=== PATIENT | male | born 1935 | race Caucasian/White ===

== ENCOUNTER 2022-11-11 08:14 | Inpatient (IN) | payer OTHER ==
[~2022-11-11] VITALS: Ht 165.1 cm; Wt 68.0 kg
[2022-11-11 08:20] VITALS: BP_SYST 105
[2022-11-11 08:28] VITALS: BP_SYST 116
[2022-11-11 09:10] LABS: HEMOGLOBIN 12.1 g/dL (14.0-18.0); LYMPHOCYTES # (AUTO) 0.2 K/uL (1.0-5.5); LYMPHOCYTES % (AUTO) 5.1 % (20.5-51.5); MEAN CORPUSCULAR HEMOGLOBIN 29 pg (27-31); MEAN CORPUSCULAR HGB CONC 34 % (32-36); MEAN CORPUSCULAR VOLUME 85 fL (79.0-98.0); MONOCYTES # (AUTO) 0.2 K/uL (0.0-1.0); MONOCYTES % (AUTO) 4.5 % (1.7-9.3); NEUTROPHILS # (AUTO) 3.5 K/uL (1.8-7.7); NEUTROPHILS % (AUTO) 90.4 % (40.0-70.0); PLATELET COUNT (AUTO) 148 K/uL (130-430); RED BLOOD CELL COUNT(AUTO) 4.23 MIL/uL (4.2-6.2); RED CELL DISTRIBUTION WIDTH 15.3 % (9.0-15.0); WHITE BLOOD COUNT (AUTO) 3.8 K/uL (4.8-10.8)
[2022-11-11 09:20] LABS: ANION GAP 18 (5-15); CALCIUM 8.3 mg/dL (8.4-11.0); CHLORIDE 95 mmol/L (98-107); CREATININE 4.71 mg/dL (0.55-1.30); GLUCOSE 116 mg/dL (70-99); UREA NITROGEN, BLOOD 84 mg/dL (8-21)
[2022-11-11 09:25] LABS: ALANINE AMINOTRANSFERASE 57 U/L (12-78); ALBUMIN 2.6 g/dL (3.4-4.8); ASPARTATE AMINOTRANSFERASE 74 U/L (10-37); TOTAL BILIRUBIN 0.6 mg/dL (0.0-1.0)
[2022-11-11 09:44] LABS: BILIRUBIN,URINE NEGATIVE (NEGATIVE); BLOOD, URINE 3+ (NEGATIVE); CLARITY/URINE CLOUDY (CLEAR); COLOR,URINE YELLOW (YELLOW); GLUCOSE,URINE NEGATIVE (NEGATIVE); KETONES,URINE NEGATIVE (NEGATIVE); LEUKOCYTE ESTERASE ,URINE NEGATIVE (NEGATIVE); NITRITE, URINE NEGATIVE (NEGATIVE); PH,URINE 5.5 (5.0-8.0); PROTEIN URINE 2+ (NEGATIVE); UROBILINOGEN,URINE 0.2 (0.2-1.0)
[2022-11-11] MEDS ORDERED: cefTRIAXone 1 GM IVPB PREMIX 50 ML IV ONE (10:15)
[2022-11-11] MEDS ORDERED: AZITHROMYCIN 500 MG in NS 250 ML IV ONE (10:15)
[2022-11-11] MEDS ORDERED: ASPIRIN 325 MG TABLET PO ONE (10:15)
[2022-11-11] MEDS ORDERED: HEPARIN SODIUM,PORCINE 5,000 UNITS/ML VIAL SUBCUT ONE (10:15)
[2022-11-11] MEDS ORDERED: methylPREDNISolone SOD SUCC/PF 62.5 MG/ML VIAL IVP ONE (10:15)
[2022-11-11 10:51] LABS: BACTERIA,URINE None Seen /HPF (None Seen); URINE AMORPHOUS URATE 4+ /HPF (None Seen); WBC,URINE 0-3 /HPF (0-3)
[2022-11-11 10:58] VITALS: BP_SYST 116
[2022-11-11] MEDS ORDERED: AZITHROMYCIN 500 MG/VIAL (ZITHROMAX) IV ONE (11:27)
[2022-11-11] MEDS ORDERED: MORPHINE 2 MG/ML INJ. SYRINGE IVP PRN ×2 (11:45)
[2022-11-11] MEDS ORDERED: POTASSIUM CHLORIDE 20 MEQ TAB.PRT.SR PO PRN (11:45)
[2022-11-11] MEDS ORDERED: MAGNESIUM SULFATE 50 ML IV PRN (11:45)
[2022-11-11] MEDS ORDERED: NALOXONE HCL 0.4 MG/ML AMP (NARCAN) IVP PRN ×2 (11:45)
[2022-11-11] MEDS ORDERED: ZOLPIDEM TARTRATE 5 MG TABLET PO PRN (11:45)
[2022-11-11] MEDS ORDERED: MUPIROCIN 2% TOPICAL OINTMENT 22 GM NS PRN (11:45)
[2022-11-11] MEDS ORDERED: LORazepam 2 MG/ML VIAL IVP PRN (11:45)
[2022-11-11] MEDS ORDERED: ACETAMINOPHEN 325 MG TABLET PO PRN (11:45)
[2022-11-11] MEDS ORDERED: DECADRON 4 MG TABLET PO SCH (12:00)
[2022-11-11] MEDS ORDERED: SIMV-43 PO (12:07)
[2022-11-11] MEDS: NACL 0.9% 1,000 ML IV SCH ×3 (12:16→21:41)
[2022-11-11] MEDS ORDERED: ENAL-77 PO (12:25)
[2022-11-11] MEDS ORDERED: LEVO50TA8 PO (12:25)
[2022-11-11] MEDS ORDERED: [UNRECOGNIZED DRUG - CODE] PO (12:25)
[2022-11-11] MEDS ORDERED: SITA50TA3 PO (12:25)
[2022-11-11] MEDS ORDERED: HYT1 PO (12:25)
[2022-11-11] MEDS ORDERED: [UNRECOGNIZED DRUG - CODE] (12:25)
[2022-11-11] MEDS ORDERED: NIRM1TAB5 PO (12:25)
[2022-11-11] MEDS ORDERED: [UNRECOGNIZED DRUG - CODE] TP (12:25)
[2022-11-11] MEDS ORDERED: AZITHROMYCIN 250 MG TABLET PO ONE (13:00)
[2022-11-11] MEDS ORDERED: DEXTROSE 50% JECT 50 ML DISP.SYRIN IVP PRN (13:30)
[2022-11-11] MEDS: cefTRIAXone 1 GM in D5W 50 ML IV SCH (14:00)
[2022-11-11 19:55] VITALS: BP_SYST 120
[2022-11-11] MEDS: SIMVASTATIN 20 MG TABLET PO SCH (21:40)
[2022-11-11] MEDS: HEPARIN SODIUM,PORCINE 5,000 UNITS/ML VIAL SUBCUT SCH (21:40)
[2022-11-11 21:42] VITALS: BP_SYST 120
[2022-11-11] MEDS: INSULIN LISPRO SLIDING SCALE 100 UNITS/ML, 3 ML VIAL (humaLOG) SUBCUT PRN (22:09)
[2022-11-12 01:14] VITALS: BP_SYST 105
[2022-11-12 05:54] LABS: BASOPHILS % (AUTO) 0.1 % (0.0-2.0); HEMATOCRIT 33.7 % (36-54); HEMOGLOBIN 11.4 g/dL (14.0-18.0); LYMPHOCYTES # (AUTO) 0.5 K/uL (1.0-5.5); LYMPHOCYTES % (AUTO) 11.6 % (20.5-51.5); MEAN CORPUSCULAR HEMOGLOBIN 29 pg (27-31); MEAN CORPUSCULAR HGB CONC 34 % (32-36); MEAN CORPUSCULAR VOLUME 85 fL (79.0-98.0); MONOCYTES # (AUTO) 0.2 K/uL (0.0-1.0); MONOCYTES % (AUTO) 5.7 % (1.7-9.3); NEUTROPHILS # (AUTO) 3.2 K/uL (1.8-7.7); NEUTROPHILS % (AUTO) 82.6 % (40.0-70.0); PLATELET COUNT (AUTO) 137 K/uL (130-430); RED BLOOD CELL COUNT(AUTO) 3.97 MIL/uL (4.2-6.2); WHITE BLOOD COUNT (AUTO) 3.9 K/uL (4.8-10.8)
[2022-11-12] MEDS: INSULIN LISPRO SLIDING SCALE 100 UNITS/ML, 3 ML VIAL (humaLOG) SUBCUT PRN ×4 (05:57→21:24)
[2022-11-12 06:52] LABS: ERYTHROCYTE SEDIMENTATION RATE 84 MM/HR (0-15)
[2022-11-12 07:33] LABS: ANION GAP 16 (5-15); CALCIUM 7.7 mg/dL (8.4-11.0); CHLORIDE 98 mmol/L (98-107); CREATININE 4.53 mg/dL (0.55-1.30); GLUCOSE 176 mg/dL (70-99)
[2022-11-12 07:52] LABS: C-REACTIVE PROTEIN QUANT 42.7 mg/dL (0-0.5)
[2022-11-12 08:01] LABS: UREA NITROGEN, BLOOD 105 mg/dL (8-21)
[2022-11-12 08:45] VITALS: BP_SYST 117
[2022-11-12] MEDS: IPRATROPIUM/ALBUTEROL SULFATE 3 ML AMPUL.NEB (DUONEB) INH PRN (08:56)
[2022-11-12] MEDS ORDERED: AZITHROMYCIN 250 MG TABLET PO ONE (09:00)
[2022-11-12] MEDS ORDERED: AZITHROMYCIN 250 MG TABLET PO SCH (09:00)
[2022-11-12] MEDS: DEXAMETHASONE SOD PHOSPHATE 10 MG/ML VIAL IVP SCH (10:08)
[2022-11-12] MEDS: HEPARIN SODIUM,PORCINE 5,000 UNITS/ML VIAL SUBCUT SCH (10:08)
[2022-11-12] MEDS: LEVOTHYROXINE SODIUM 0.05 MG TABLET PO SCH (10:13)
[2022-11-12] MEDS: CHOLECALCIFEROL (VITAMIN D3) 2,000 UNIT TABLET PO SCH (10:13)
[2022-11-12] MEDS: ASCORBIC ACID 500 MG TABLET PO SCH (10:13)
[2022-11-12] MEDS: TERAZOSIN HCL 1 MG CAPSULE (HYTRIN) PO SCH (10:14)
[2022-11-12 11:25] VITALS: BP_SYST 130
[2022-11-12 15:22] VITALS: BP_SYST 155
[2022-11-12] MEDS: cefTRIAXone 1 GM in D5W 50 ML IV SCH (15:52)
[2022-11-12] MEDS: NACL 0.9% 1,000 ML IV SCH (16:21)
[2022-11-12] MEDS ORDERED: APIXABAN 2.5 MG TABLET PO ONE (16:30)
[2022-11-12 20:40] VITALS: BP_SYST 130
[2022-11-12] MEDS: SIMVASTATIN 20 MG TABLET PO SCH (21:22)
[2022-11-12] MEDS: APIXABAN 2.5 MG TABLET PO SCH (21:23)
[2022-11-13] VITALS (13 sets, daily range): BP systolic 110–144
[2022-11-13 06:03] LABS: HEMATOCRIT 33.5 % (36-54); HEMOGLOBIN 11.2 g/dL (14.0-18.0); LYMPHOCYTES # (AUTO) 0.5 K/uL (1.0-5.5); LYMPHOCYTES % (AUTO) 6.2 % (20.5-51.5); MEAN CORPUSCULAR HEMOGLOBIN 29 pg (27-31); MEAN CORPUSCULAR HGB CONC 34 % (32-36); MEAN CORPUSCULAR VOLUME 86 fL (79.0-98.0); MONOCYTES # (AUTO) 0.6 K/uL (0.0-1.0); MONOCYTES % (AUTO) 6.6 % (1.7-9.3); NEUTROPHILS # (AUTO) 7.4 K/uL (1.8-7.7); NEUTROPHILS % (AUTO) 87.2 % (40.0-70.0); PLATELET COUNT (AUTO) 155 K/uL (130-430); RED BLOOD CELL COUNT(AUTO) 3.92 MIL/uL (4.2-6.2); RED CELL DISTRIBUTION WIDTH 15.2 % (9.0-15.0); WHITE BLOOD COUNT (AUTO) 8.6 K/uL (4.8-10.8)
[2022-11-13] MEDS: NACL 0.9% 1,000 ML IV SCH ×2 (06:40→21:45)
[2022-11-13] MEDS: INSULIN LISPRO SLIDING SCALE 100 UNITS/ML, 3 ML VIAL (humaLOG) SUBCUT PRN ×4 (06:46→21:43)
[2022-11-13] MEDS: IPRATROPIUM/ALBUTEROL SULFATE 3 ML AMPUL.NEB (DUONEB) INH PRN ×2 (07:37→13:04)
[2022-11-13 07:55] LABS: ANION GAP 17 (5-15); C-REACTIVE PROTEIN QUANT 32.6 mg/dL (0-0.5); CALCIUM 7.8 mg/dL (8.4-11.0); CHLORIDE 100 mmol/L (98-107); CREATININE 3.97 mg/dL (0.55-1.30); GLUCOSE 243 mg/dL (70-99)
[2022-11-13 07:59] LABS: UREA NITROGEN, BLOOD 133 mg/dL (8-21)
[2022-11-13 08:26] LABS: ERYTHROCYTE SEDIMENTATION RATE 86 MM/HR (0-15)
[2022-11-13] MEDS: DEXAMETHASONE SOD PHOSPHATE 10 MG/ML VIAL IVP SCH (10:41)
[2022-11-13] MEDS: APIXABAN 2.5 MG TABLET PO SCH (10:41)
[2022-11-13] MEDS: LEVOTHYROXINE SODIUM 0.05 MG TABLET PO SCH (10:42)
[2022-11-13] MEDS: ASCORBIC ACID 500 MG TABLET PO SCH (10:43)
[2022-11-13] MEDS: TERAZOSIN HCL 1 MG CAPSULE (HYTRIN) PO SCH (10:43)
[2022-11-13] MEDS: CHOLECALCIFEROL (VITAMIN D3) 2,000 UNIT TABLET PO SCH (10:45)
[2022-11-13] MEDS: ONDANSETRON HCL 4 MG/2 ML VIAL IVP PRN (13:04)
[2022-11-13] MEDS ORDERED: DEXAMETHASONE SOD PHOSPHATE 4 MG/ML VIAL IVP ONE (13:15)
[2022-11-13 15:48] LABS: ANION GAP 16 (5-15); CALCIUM 8.3 mg/dL (8.4-11.0); CHLORIDE 100 mmol/L (98-107); CREATININE 3.52 mg/dL (0.55-1.30); GLUCOSE 289 mg/dL (70-99)
[2022-11-13 15:52] LABS: UREA NITROGEN, BLOOD 142 mg/dL (8-21)
[2022-11-13 15:54] LABS: BASOPHILS % (AUTO) 0.1 % (0.0-2.0); HEMOGLOBIN 10.7 g/dL (14.0-18.0); LYMPHOCYTES # (AUTO) 0.2 K/uL (1.0-5.5); LYMPHOCYTES % (AUTO) 2.2 % (20.5-51.5); MEAN CORPUSCULAR HEMOGLOBIN 29 pg (27-31); MEAN CORPUSCULAR HGB CONC 33 % (32-36); MEAN CORPUSCULAR VOLUME 87 fL (79.0-98.0); MONOCYTES # (AUTO) 0.7 K/uL (0.0-1.0); MONOCYTES % (AUTO) 6.8 % (1.7-9.3); NEUTROPHILS # (AUTO) 9.4 K/uL (1.8-7.7); PLATELET COUNT (AUTO) 183 K/uL (130-430); RED CELL DISTRIBUTION WIDTH 15.4 % (9.0-15.0); WHITE BLOOD COUNT (AUTO) 10.3 K/uL (4.8-10.8)
[2022-11-13 16:34] LABS: NEUTROPHILS % (AUTO) 90.9 % (40.0-70.0)
[2022-11-13] MEDS: PIPERACILLIN/TAZO 2.25G/DEX-IS 50 ML IV SCH (17:03)
[2022-11-13] MEDS ORDERED: METOPROLOL TARTRATE 5 MG/5 ML VIAL IVP ONE ×2 (17:15→18:00)
[2022-11-13] MEDS ORDERED: PIPERACILLIN/TAZO 2.25G/DEX-IS 50 ML IV SCH (18:00)
[2022-11-13] MEDS ORDERED: METOPROLOL TARTRATE 5 MG/5 ML VIAL IVP PRN (20:45)
[2022-11-13] MEDS ORDERED: METOPROLOL TARTRATE 25 MG TABLET PO ONE (20:45)
[2022-11-13] MEDS ORDERED: HEPARIN SODIUM,PORCINE 5,000 UNITS/ML VIAL SUBCUT SCH (21:00)
[2022-11-13] MEDS ORDERED: METOPROLOL TARTRATE 25 MG TABLET ONE (21:05)
[2022-11-13] MEDS: SIMVASTATIN 20 MG TABLET PO SCH (21:17)
[2022-11-13] MEDS: DOXYCYCLINE HYCLATE 100 MG in D5W 100 ML IV SCH (21:46)
[2022-11-14] VITALS (22 sets, daily range): BP systolic 85–117
[2022-11-14] MEDS: PIPERACILLIN/TAZO 2.25G/DEX-IS 50 ML IV SCH ×3 (01:22→17:27)
[2022-11-14 04:28] LABS: HEMATOCRIT 25.9 % (36-54); HEMOGLOBIN 8.7 g/dL (14.0-18.0); LYMPHOCYTES # (AUTO) 0.2 K/uL (1.0-5.5); LYMPHOCYTES % (AUTO) 2.2 % (20.5-51.5); MEAN CORPUSCULAR HEMOGLOBIN 29 pg (27-31); MEAN CORPUSCULAR HGB CONC 34 % (32-36); MEAN CORPUSCULAR VOLUME 85 fL (79.0-98.0); MONOCYTES # (AUTO) 0.8 K/uL (0.0-1.0); MONOCYTES % (AUTO) 6.7 % (1.7-9.3); NEUTROPHILS # (AUTO) 10.4 K/uL (1.8-7.7); NEUTROPHILS % (AUTO) 91.1 % (40.0-70.0); PLATELET COUNT (AUTO) 210 K/uL (130-430); RED BLOOD CELL COUNT(AUTO) 3.06 MIL/uL (4.2-6.2); RED CELL DISTRIBUTION WIDTH 15.2 % (9.0-15.0); WHITE BLOOD COUNT (AUTO) 11.4 K/uL (4.8-10.8)
[2022-11-14 05:00] LABS: ALANINE AMINOTRANSFERASE 130 U/L (12-78); ALBUMIN 1.7 g/dL (3.4-4.8); ANION GAP 16 (5-15); ASPARTATE AMINOTRANSFERASE 107 U/L (10-37); C-REACTIVE PROTEIN QUANT 13.7 mg/dL (0-0.5); CALCIUM 7.3 mg/dL (8.4-11.0); CHLORIDE 105 mmol/L (98-107); CREATININE 3.65 mg/dL (0.55-1.30); GLUCOSE 382 mg/dL (70-99); LACTATE DEHYDROGENASE 344 U/L (85-227); TOTAL BILIRUBIN 0.3 mg/dL (0.0-1.0)
[2022-11-14 05:09] LABS: UREA NITROGEN, BLOOD 160 mg/dL (8-21)
[2022-11-14] MEDS ORDERED: SODIUM POLYSTYRENE SULFONATE 15 GM/60 ML UDBTL ONE (05:41)
[2022-11-14] MEDS ORDERED: SODIUM POLYSTYRENE SULFONATE 15 GM/60 ML UDBTL PO ONE (05:45)
[2022-11-14] MEDS: INSULIN LISPRO SLIDING SCALE 100 UNITS/ML, 3 ML VIAL (humaLOG) SUBCUT PRN ×4 (05:57→21:29)
[2022-11-14] MEDS: NACL 0.9% 1,000 ML IV SCH ×2 (06:02→13:21)
[2022-11-14 06:59] LABS: ERYTHROCYTE SEDIMENTATION RATE 49 MM/HR (0-15)
[2022-11-14] MEDS: DOXYCYCLINE HYCLATE 100 MG in D5W 100 ML IV SCH ×2 (08:14→21:23)
[2022-11-14] MEDS: TERAZOSIN HCL 1 MG CAPSULE (HYTRIN) PO SCH (09:00)
[2022-11-14] MEDS ORDERED: PANTOPRAZOLE SODIUM 40 MG/VIAL (PROTONIX) IVP SCH (09:00)
[2022-11-14] MEDS: LEVOTHYROXINE SODIUM 0.05 MG TABLET PO SCH (09:00)
[2022-11-14] MEDS: METOPROLOL TARTRATE 25 MG TABLET PO SCH ×2 (09:00→21:00)
[2022-11-14] MEDS: CHOLECALCIFEROL (VITAMIN D3) 2,000 UNIT TABLET PO SCH (09:00)
[2022-11-14] MEDS: ASCORBIC ACID 500 MG TABLET PO SCH (09:00)
[2022-11-14 09:37] LABS: INR 1.4 (0.80-1.20); PROTHROMBIN TIME 14.4 SECS (9.5-12.5)
[2022-11-14] MEDS: DEXAMETHASONE SOD PHOSPHATE 10 MG/ML VIAL IVP SCH (10:15)
[2022-11-14] MEDS ORDERED: PHENYLEPHRINE HCL 10 MG/ML VIAL (NEOSYNEPHRINE) ONE (11:03)
[2022-11-14] MEDS ORDERED: PHENYLEPHRINE HCL 50 MG in NS 245 ML IV PRN (12:00)
[2022-11-14] MEDS: PANTOPRAZOLE SODIUM 40 MG in NS 50 ML IV SCH ×2 (17:31→21:31)
[2022-11-14] MEDS ORDERED: AMIODARONE HCL 150 MG in D5W 100 ML IV ONE (17:45)
[2022-11-14] MEDS ORDERED: ALBUMIN HUMAN 25% 100 ML IV ONE (17:45)
[2022-11-14] MEDS: SODIUM BICARBONATE 8.4% VIAL 100 MEQ in 0.45% NACL 1,000 ML IV SCH (18:38)
[2022-11-14] MEDS: SIMVASTATIN 20 MG TABLET PO SCH (21:00)
[2022-11-14] MEDS: AMIODARONE HCL 450 MG in D5W 241 ML IV SCH (21:26)
[2022-11-14] MEDS: INSULIN GLARGINE 100 UNITS/ML, 10 ML VIAL SUBCUT SCH (21:31)
[2022-11-15] VITALS (23 sets, daily range): BP systolic 88–156
[2022-11-15] MEDS: PIPERACILLIN/TAZO 2.25G/DEX-IS 50 ML IV SCH ×3 (01:36→17:08)
[2022-11-15] MEDS: PANTOPRAZOLE SODIUM 40 MG in NS 50 ML IV SCH ×5 (01:36→23:05)
[2022-11-15] MEDS ORDERED: DEXMEDETOMIDINE HCL 200 MCG/2 ML VIAL IV ONE (04:10)
[2022-11-15 04:41] LABS: BASOPHILS % (AUTO) 0.1 % (0.0-2.0); LYMPHOCYTES # (AUTO) 0.5 K/uL (1.0-5.5); LYMPHOCYTES % (AUTO) 3.2 % (20.5-51.5); MEAN CORPUSCULAR HEMOGLOBIN 29 pg (27-31); MEAN CORPUSCULAR HGB CONC 34 % (32-36); MEAN CORPUSCULAR VOLUME 85 fL (79.0-98.0); MONOCYTES # (AUTO) 0.9 K/uL (0.0-1.0); MONOCYTES % (AUTO) 5.5 % (1.7-9.3); NEUTROPHILS # (AUTO) 14.8 K/uL (1.8-7.7); NEUTROPHILS % (AUTO) 91.2 % (40.0-70.0); PLATELET COUNT (AUTO) 256 K/uL (130-430); RED BLOOD CELL COUNT(AUTO) 2.08 MIL/uL (4.2-6.2); WHITE BLOOD COUNT (AUTO) 16.3 K/uL (4.8-10.8)
[2022-11-15 05:04] LABS: ANION GAP 17 (5-15); C-REACTIVE PROTEIN QUANT 8.7 mg/dL (0-0.5); CALCIUM 7.2 mg/dL (8.4-11.0); CHLORIDE 112 mmol/L (98-107); CREATININE 3.52 mg/dL (0.55-1.30); GLUCOSE 305 mg/dL (70-99)
[2022-11-15 05:08] LABS: UREA NITROGEN, BLOOD 156 mg/dL (8-21)
[2022-11-15 05:32] LABS: INR 1.4 (0.80-1.20); PROTHROMBIN TIME 14.5 SECS (9.5-12.5)
[2022-11-15 05:40] LABS: HEMATOCRIT 17.6 % (36-54); HEMOGLOBIN 5.9 g/dL (14.0-18.0)
[2022-11-15] MEDS: SODIUM BICARBONATE 8.4% VIAL 100 MEQ in 0.45% NACL 1,000 ML IV SCH ×3 (05:45→22:35)
[2022-11-15] MEDS: AMIODARONE HCL 450 MG in D5W 241 ML IV SCH (05:46)
[2022-11-15 05:48] LABS: ERYTHROCYTE SEDIMENTATION RATE 14 MM/HR (0-15)
[2022-11-15] MEDS: INSULIN LISPRO SLIDING SCALE 100 UNITS/ML, 3 ML VIAL (humaLOG) SUBCUT PRN ×4 (05:48→23:04)
[2022-11-15] MEDS ORDERED: NS 500 ML IV ONE (07:30)
[2022-11-15] MEDS: ALBUMIN HUMAN 25% 50 ML IV SCH ×3 (08:03→22:32)
[2022-11-15] MEDS: CHOLECALCIFEROL (VITAMIN D3) 2,000 UNIT TABLET PO SCH (09:00)
[2022-11-15] MEDS: METOPROLOL TARTRATE 25 MG TABLET PO SCH ×2 (09:00→21:00)
[2022-11-15] MEDS: LEVOTHYROXINE SODIUM 0.05 MG TABLET PO SCH (09:00)
[2022-11-15] MEDS: TERAZOSIN HCL 1 MG CAPSULE (HYTRIN) PO SCH (09:00)
[2022-11-15] MEDS: ASCORBIC ACID 500 MG TABLET PO SCH (09:00)
[2022-11-15] MEDS: DOXYCYCLINE HYCLATE 100 MG in D5W 100 ML IV SCH ×2 (09:14→22:38)
[2022-11-15] MEDS ORDERED: PHENYLEPHRINE HCL 100 MG in NS 240 ML IV PRN (09:15)
[2022-11-15] MEDS ORDERED: PHYTONADIONE 10 MG/ML AMP SUBCUT ONE (09:30)
[2022-11-15] MEDS: DEXAMETHASONE SOD PHOSPHATE 10 MG/ML VIAL IVP SCH (10:57)
[2022-11-15] MEDS: SIMVASTATIN 20 MG TABLET PO SCH (21:00)
[2022-11-15] MEDS: INSULIN GLARGINE 100 UNITS/ML, 10 ML VIAL SUBCUT SCH (22:57)
[2022-11-16] VITALS (24 sets, daily range): BP systolic 95–161
[2022-11-16] MEDS: PIPERACILLIN/TAZO 2.25G/DEX-IS 50 ML IV SCH ×3 (01:21→18:14)
[2022-11-16 05:05] LABS: BASOPHILS % (AUTO) 0.1 % (0.0-2.0); HEMOGLOBIN 8.2 g/dL (14.0-18.0); LYMPHOCYTES # (AUTO) 0.5 K/uL (1.0-5.5); LYMPHOCYTES % (AUTO) 2.2 % (20.5-51.5); MEAN CORPUSCULAR HEMOGLOBIN 30 pg (27-31); MEAN CORPUSCULAR HGB CONC 34 % (32-36); MEAN CORPUSCULAR VOLUME 86 fL (79.0-98.0); MONOCYTES # (AUTO) 1.1 K/uL (0.0-1.0); MONOCYTES % (AUTO) 4.9 % (1.7-9.3); NEUTROPHILS # (AUTO) 21.1 K/uL (1.8-7.7); NEUTROPHILS % (AUTO) 92.8 % (40.0-70.0); PLATELET COUNT (AUTO) 305 K/uL (130-430); RED BLOOD CELL COUNT(AUTO) 2.78 MIL/uL (4.2-6.2); RED CELL DISTRIBUTION WIDTH 15.4 % (9.0-15.0); WHITE BLOOD COUNT (AUTO) 22.7 K/uL (4.8-10.8)
[2022-11-16 05:25] LABS: ALANINE AMINOTRANSFERASE 83 U/L (12-78); ALBUMIN 2.3 g/dL (3.4-4.8); AMYLASE 85 U/L (0-100); ANION GAP 12 (5-15); ASPARTATE AMINOTRANSFERASE 30 U/L (10-37); CALCIUM 7.3 mg/dL (8.4-11.0); CHLORIDE 115 mmol/L (98-107); CREATININE 2.61 mg/dL (0.55-1.30); GLUCOSE 242 mg/dL (70-99); TOTAL BILIRUBIN 0.5 mg/dL (0.0-1.0)
[2022-11-16 05:30] LABS: UREA NITROGEN, BLOOD 119 mg/dL (8-21)
[2022-11-16 05:31] LABS: INR 1.5 (0.80-1.20); PROTHROMBIN TIME 15.5 SECS (9.5-12.5)
[2022-11-16] MEDS: SODIUM BICARBONATE 8.4% VIAL 100 MEQ in 0.45% NACL 1,000 ML IV SCH ×2 (05:57→18:30)
[2022-11-16] MEDS: PANTOPRAZOLE SODIUM 40 MG in NS 50 ML IV SCH ×4 (06:06→18:30)
[2022-11-16 07:01] LABS: ERYTHROCYTE SEDIMENTATION RATE 13 MM/HR (0-15)
[2022-11-16] MEDS: TERAZOSIN HCL 1 MG CAPSULE (HYTRIN) PO SCH (07:56)
[2022-11-16] MEDS: CHOLECALCIFEROL (VITAMIN D3) 2,000 UNIT TABLET PO SCH (08:03)
[2022-11-16] MEDS: ASCORBIC ACID 500 MG TABLET PO SCH (08:03)
[2022-11-16] MEDS: LEVOTHYROXINE SODIUM 0.05 MG TABLET PO SCH (08:03)
[2022-11-16] MEDS: METOPROLOL TARTRATE 25 MG TABLET PO SCH ×2 (08:03→20:47)
[2022-11-16] MEDS: DOXYCYCLINE HYCLATE 100 MG in D5W 100 ML IV SCH ×2 (08:10→20:47)
[2022-11-16] MEDS: DEXAMETHASONE SOD PHOSPHATE 10 MG/ML VIAL IVP SCH (10:45)
[2022-11-16] MEDS: SIMVASTATIN 20 MG TABLET PO SCH (20:47)
[2022-11-16] MEDS: INSULIN GLARGINE 100 UNITS/ML, 10 ML VIAL SUBCUT SCH (21:11)
[2022-11-16] MEDS: INSULIN LISPRO SLIDING SCALE 100 UNITS/ML, 3 ML VIAL (humaLOG) SUBCUT PRN (21:12)
[2022-11-17] VITALS (24 sets, daily range): BP systolic 106–145
[2022-11-17] MEDS: PIPERACILLIN/TAZO 2.25G/DEX-IS 50 ML IV SCH ×3 (01:04→17:11)
[2022-11-17] MEDS: PANTOPRAZOLE SODIUM 40 MG in NS 50 ML IV SCH ×5 (01:05→21:00)
[2022-11-17 05:22] LABS: BASOPHILS % (AUTO) 0.1 % (0.0-2.0); HEMATOCRIT 25.7 % (36-54); HEMOGLOBIN 8.6 g/dL (14.0-18.0); LYMPHOCYTES # (AUTO) 0.3 K/uL (1.0-5.5); LYMPHOCYTES % (AUTO) 1.4 % (20.5-51.5); MEAN CORPUSCULAR HEMOGLOBIN 29 pg (27-31); MEAN CORPUSCULAR HGB CONC 33 % (32-36); MEAN CORPUSCULAR VOLUME 87 fL (79.0-98.0); MONOCYTES # (AUTO) 0.9 K/uL (0.0-1.0); NEUTROPHILS % (AUTO) 94.5 % (40.0-70.0); PLATELET COUNT (AUTO) 336 K/uL (130-430); RED BLOOD CELL COUNT(AUTO) 2.96 MIL/uL (4.2-6.2); RED CELL DISTRIBUTION WIDTH 15.5 % (9.0-15.0); WHITE BLOOD COUNT (AUTO) 22.2 K/uL (4.8-10.8)
[2022-11-17 05:46] LABS: ANION GAP 11 (5-15); C-REACTIVE PROTEIN QUANT 10.1 mg/dL (0-0.5); CALCIUM 7.1 mg/dL (8.4-11.0); CHLORIDE 115 mmol/L (98-107); CREATININE 2.41 mg/dL (0.55-1.30); GLUCOSE 343 mg/dL (70-99); UREA NITROGEN, BLOOD 91 mg/dL (8-21)
[2022-11-17] MEDS: INSULIN LISPRO SLIDING SCALE 100 UNITS/ML, 3 ML VIAL (humaLOG) SUBCUT PRN ×3 (06:13→21:40)
[2022-11-17 06:50] LABS: ERYTHROCYTE SEDIMENTATION RATE 16 MM/HR (0-15)
[2022-11-17] MEDS ORDERED: NS 500 ML IV ONE (07:30)
[2022-11-17] MEDS: AMIODARONE HCL 200 MG TABLET PO SCH ×2 (08:11→21:01)
[2022-11-17] MEDS: CHOLECALCIFEROL (VITAMIN D3) 2,000 UNIT TABLET PO SCH (08:11)
[2022-11-17] MEDS: METOPROLOL TARTRATE 25 MG TABLET PO SCH ×2 (08:12→21:00)
[2022-11-17] MEDS: LEVOTHYROXINE SODIUM 0.05 MG TABLET PO SCH (08:12)
[2022-11-17] MEDS: TERAZOSIN HCL 1 MG CAPSULE (HYTRIN) PO SCH (08:12)
[2022-11-17] MEDS: ASCORBIC ACID 500 MG TABLET PO SCH (08:13)
[2022-11-17] MEDS: DOXYCYCLINE HYCLATE 100 MG in D5W 100 ML IV SCH ×2 (08:14→21:01)
[2022-11-17] MEDS: SODIUM BICARBONATE 8.4% VIAL 100 MEQ in 0.45% NACL 1,000 ML IV SCH ×2 (10:37→16:17)
[2022-11-17] MEDS: DEXAMETHASONE SOD PHOSPHATE 10 MG/ML VIAL IVP SCH (10:46)
[2022-11-17] MEDS: ACETAMINOPHEN 325 MG TABLET PO PRN (12:49)
[2022-11-17] MEDS ORDERED: FUROSEMIDE 20 MG/2 ML VIAL IVP ONE (16:45)
[2022-11-17] MEDS ORDERED: INSULIN GLARGINE 100 UNITS/ML, 10 ML VIAL SUBCUT SCH (21:00)
[2022-11-17] MEDS ORDERED: AMIODARONE HCL 200 MG TABLET ONE (21:01)
[2022-11-17] MEDS: SIMVASTATIN 20 MG TABLET PO SCH (21:02)
[2022-11-18] VITALS (24 sets, daily range): BP systolic 95–135
[2022-11-18] MEDS: PANTOPRAZOLE SODIUM 40 MG in NS 50 ML IV SCH ×5 (01:26→23:38)
[2022-11-18] MEDS: PIPERACILLIN/TAZO 2.25G/DEX-IS 50 ML IV SCH ×3 (01:27→19:11)
[2022-11-18] MEDS: SODIUM BICARBONATE 8.4% VIAL 100 MEQ in 0.45% NACL 1,000 ML IV SCH (02:25)
[2022-11-18 04:47] LABS: HEMOGLOBIN 7.4 g/dL (14.0-18.0); LYMPHOCYTES # (AUTO) 0.3 K/uL (1.0-5.5); LYMPHOCYTES % (AUTO) 1.2 % (20.5-51.5); MEAN CORPUSCULAR HEMOGLOBIN 30 pg (27-31); MEAN CORPUSCULAR HGB CONC 34 % (32-36); MEAN CORPUSCULAR VOLUME 88 fL (79.0-98.0); MONOCYTES # (AUTO) 0.7 K/uL (0.0-1.0); NEUTROPHILS # (AUTO) 21.9 K/uL (1.8-7.7); NEUTROPHILS % (AUTO) 95.8 % (40.0-70.0); PLATELET COUNT (AUTO) 301 K/uL (130-430); RED BLOOD CELL COUNT(AUTO) 2.49 MIL/uL (4.2-6.2); RED CELL DISTRIBUTION WIDTH 15.5 % (9.0-15.0); WHITE BLOOD COUNT (AUTO) 22.9 K/uL (4.8-10.8)
[2022-11-18 05:14] LABS: ALANINE AMINOTRANSFERASE 76 U/L (12-78); ALBUMIN 1.8 g/dL (3.4-4.8); ANION GAP 10 (5-15); ASPARTATE AMINOTRANSFERASE 35 U/L (10-37); C-REACTIVE PROTEIN QUANT 6.9 mg/dL (0-0.5); CHLORIDE 111 mmol/L (98-107); CREATININE 2.15 mg/dL (0.55-1.30); GLUCOSE 230 mg/dL (70-99); LIPASE 348 U/L (73-393); TOTAL BILIRUBIN 0.4 mg/dL (0.0-1.0); UREA NITROGEN, BLOOD 77 mg/dL (8-21)
[2022-11-18 05:34] LABS: CALCIUM 6.8 mg/dL (8.4-11.0)
[2022-11-18 05:35] LABS: HEMATOCRIT 21.8 % (36-54)
[2022-11-18] MEDS: INSULIN LISPRO SLIDING SCALE 100 UNITS/ML, 3 ML VIAL (humaLOG) SUBCUT PRN ×2 (06:35→11:54)
[2022-11-18 07:32] LABS: ERYTHROCYTE SEDIMENTATION RATE 19 MM/HR (0-15)
[2022-11-18] MEDS: DOXYCYCLINE HYCLATE 100 MG in D5W 100 ML IV SCH ×2 (08:13→23:35)
[2022-11-18] MEDS: TERAZOSIN HCL 1 MG CAPSULE (HYTRIN) PO SCH (08:14)
[2022-11-18] MEDS: CHOLECALCIFEROL (VITAMIN D3) 2,000 UNIT TABLET PO SCH (08:14)
[2022-11-18] MEDS: METOPROLOL TARTRATE 25 MG TABLET PO SCH ×2 (08:14→23:37)
[2022-11-18] MEDS: LEVOTHYROXINE SODIUM 0.05 MG TABLET PO SCH (08:14)
[2022-11-18] MEDS: ASCORBIC ACID 500 MG TABLET PO SCH (08:15)
[2022-11-18] MEDS: 0.45% NACL 1,000 ML IV SCH ×2 (08:16→17:45)
[2022-11-18] MEDS: AMIODARONE HCL 200 MG TABLET PO SCH ×2 (09:00→23:36)
[2022-11-18] MEDS ORDERED: DEXAMETHASONE SOD PHOSPHATE 10 MG/ML VIAL IVP ONE (10:00)
[2022-11-18 18:19] LABS: BASOPHILS # (AUTO) 0.1 K/uL (0.0-0.2); BASOPHILS % (AUTO) 0.4 % (0.0-2.0); HEMATOCRIT 24.1 % (36-54); LYMPHOCYTES # (AUTO) 0.4 K/uL (1.0-5.5); LYMPHOCYTES % (AUTO) 1.5 % (20.5-51.5); MEAN CORPUSCULAR HEMOGLOBIN 30 pg (27-31); MEAN CORPUSCULAR HGB CONC 33 % (32-36); MEAN CORPUSCULAR VOLUME 89 fL (79.0-98.0); MONOCYTES # (AUTO) 0.6 K/uL (0.0-1.0); NEUTROPHILS # (AUTO) 28.8 K/uL (1.8-7.7); PLATELET COUNT (AUTO) 337 K/uL (130-430); RED BLOOD CELL COUNT(AUTO) 2.71 MIL/uL (4.2-6.2); RED CELL DISTRIBUTION WIDTH 15.7 % (9.0-15.0); WHITE BLOOD COUNT (AUTO) 29.9 K/uL (4.8-10.8)
[2022-11-18 18:40] LABS: NEUTROPHILS % (AUTO) 96.1 % (40.0-70.0)
[2022-11-18] MEDS: SIMVASTATIN 20 MG TABLET PO SCH (23:38)
[2022-11-18] MEDS: INSULIN GLARGINE 100 UNITS/ML, 10 ML VIAL SUBCUT SCH (23:50)
[2022-11-19] VITALS (24 sets, daily range): BP systolic 92–134
[2022-11-19 05:24] LABS: BASOPHILS % (AUTO) 0.1 % (0.0-2.0); EOSINOPHILS % (AUTO) 0.1 % (0.0-4.0); HEMATOCRIT 23.3 % (36-54); HEMOGLOBIN 7.6 g/dL (14.0-18.0); LYMPHOCYTES # (AUTO) 0.3 K/uL (1.0-5.5); LYMPHOCYTES % (AUTO) 1.2 % (20.5-51.5); MEAN CORPUSCULAR HEMOGLOBIN 29 pg (27-31); MEAN CORPUSCULAR HGB CONC 33 % (32-36); MEAN CORPUSCULAR VOLUME 90 fL (79.0-98.0); MONOCYTES # (AUTO) 0.5 K/uL (0.0-1.0); MONOCYTES % (AUTO) 1.9 % (1.7-9.3); NEUTROPHILS % (AUTO) 96.7 % (40.0-70.0); PLATELET COUNT (AUTO) 294 K/uL (130-430); RED CELL DISTRIBUTION WIDTH 15.4 % (9.0-15.0); WHITE BLOOD COUNT (AUTO) 25.8 K/uL (4.8-10.8)
[2022-11-19 05:34] LABS: ANION GAP 9 (5-15); CALCIUM 7.2 mg/dL (8.4-11.0); CHLORIDE 111 mmol/L (98-107); CREATININE 2.04 mg/dL (0.55-1.30); GLUCOSE 147 mg/dL (70-99); UREA NITROGEN, BLOOD 65 mg/dL (8-21)
[2022-11-19] MEDS: PIPERACILLIN/TAZO 2.25G/DEX-IS 50 ML IV SCH ×3 (06:16→18:40)
[2022-11-19] MEDS: 0.45% NACL 1,000 ML IV SCH ×2 (06:17→17:22)
[2022-11-19] MEDS: PANTOPRAZOLE SODIUM 40 MG in NS 50 ML IV SCH ×5 (06:17→22:21)
[2022-11-19] MEDS ORDERED: DEXAMETHASONE SOD PHOSPHATE 10 MG/ML VIAL IVP SCH (09:00)
[2022-11-19] MEDS ORDERED: FUROSEMIDE 20 MG TABLET PO ONE (09:45)
[2022-11-19] MEDS ORDERED: AMIODARONE HCL 200 MG TABLET PO ONE (09:45)
[2022-11-19] MEDS: DOXYCYCLINE HYCLATE 100 MG in D5W 100 ML IV SCH ×2 (11:27→21:20)
[2022-11-19] MEDS: TERAZOSIN HCL 1 MG CAPSULE (HYTRIN) PO SCH (11:31)
[2022-11-19] MEDS: METOPROLOL TARTRATE 25 MG TABLET PO SCH ×2 (11:32→21:22)
[2022-11-19] MEDS: ASCORBIC ACID 500 MG TABLET PO SCH (11:33)
[2022-11-19] MEDS: CHOLECALCIFEROL (VITAMIN D3) 2,000 UNIT TABLET PO SCH (11:33)
[2022-11-19] MEDS: LEVOTHYROXINE SODIUM 0.05 MG TABLET PO SCH (11:33)
[2022-11-19] MEDS: INSULIN LISPRO SLIDING SCALE 100 UNITS/ML, 3 ML VIAL (humaLOG) SUBCUT PRN ×2 (16:38→21:31)
[2022-11-19] MEDS: IPRATROPIUM/ALBUTEROL SULFATE 3 ML AMPUL.NEB (DUONEB) INH PRN (20:01)
[2022-11-19] MEDS: AMIODARONE HCL 200 MG TABLET PO SCH (21:21)
[2022-11-19] MEDS: ACETAMINOPHEN 325 MG TABLET PO PRN (21:22)
[2022-11-19] MEDS: SIMVASTATIN 20 MG TABLET PO SCH (21:22)
[2022-11-19] MEDS: INSULIN GLARGINE 100 UNITS/ML, 10 ML VIAL SUBCUT SCH (21:27)
[2022-11-20] VITALS (25 sets, daily range): BP systolic 93–132
[2022-11-20] MEDS: PANTOPRAZOLE SODIUM 40 MG in NS 50 ML IV SCH ×5 (01:45→23:33)
[2022-11-20] MEDS: PIPERACILLIN/TAZO 2.25G/DEX-IS 50 ML IV SCH ×2 (01:46→10:08)
[2022-11-20 05:40] LABS: BASOPHILS % (AUTO) 0.1 % (0.0-2.0); LYMPHOCYTES # (AUTO) 0.2 K/uL (1.0-5.5); MEAN CORPUSCULAR HEMOGLOBIN 29 pg (27-31); MEAN CORPUSCULAR HGB CONC 33 % (32-36); MEAN CORPUSCULAR VOLUME 88 fL (79.0-98.0); MONOCYTES # (AUTO) 0.5 K/uL (0.0-1.0); MONOCYTES % (AUTO) 2.2 % (1.7-9.3); NEUTROPHILS # (AUTO) 22.5 K/uL (1.8-7.7); NEUTROPHILS % (AUTO) 96.7 % (40.0-70.0); PLATELET COUNT (AUTO) 245 K/uL (130-430); RED BLOOD CELL COUNT(AUTO) 2.39 MIL/uL (4.2-6.2); RED CELL DISTRIBUTION WIDTH 15.7 % (9.0-15.0); WHITE BLOOD COUNT (AUTO) 23.3 K/uL (4.8-10.8)
[2022-11-20 05:45] LABS: HEMATOCRIT 21.2 % (36-54)
[2022-11-20] MEDS: INSULIN LISPRO SLIDING SCALE 100 UNITS/ML, 3 ML VIAL (humaLOG) SUBCUT PRN ×3 (06:11→17:57)
[2022-11-20 07:57] LABS: ALANINE AMINOTRANSFERASE 82 U/L (12-78); ALBUMIN 1.5 g/dL (3.4-4.8); ANION GAP 10 (5-15); ASPARTATE AMINOTRANSFERASE 28 U/L (10-37); C-REACTIVE PROTEIN QUANT 29.1 mg/dL (0-0.5); CALCIUM 7.2 mg/dL (8.4-11.0); CHLORIDE 110 mmol/L (98-107); CREATININE 1.96 mg/dL (0.55-1.30); GLUCOSE 239 mg/dL (70-99); TOTAL BILIRUBIN 0.6 mg/dL (0.0-1.0); UREA NITROGEN, BLOOD 66 mg/dL (8-21)
[2022-11-20] MEDS: DOXYCYCLINE HYCLATE 100 MG in D5W 100 ML IV SCH (09:58)
[2022-11-20] MEDS: DEXAMETHASONE SOD PHOSPHATE 10 MG/ML VIAL IVP SCH (09:59)
[2022-11-20] MEDS: CHOLECALCIFEROL (VITAMIN D3) 2,000 UNIT TABLET PO SCH (10:00)
[2022-11-20] MEDS: LEVOTHYROXINE SODIUM 0.05 MG TABLET PO SCH (10:01)
[2022-11-20] MEDS: ASCORBIC ACID 500 MG TABLET PO SCH (10:01)
[2022-11-20] MEDS: METOPROLOL TARTRATE 25 MG TABLET PO SCH ×2 (10:03→22:02)
[2022-11-20] MEDS: TERAZOSIN HCL 1 MG CAPSULE (HYTRIN) PO SCH (10:04)
[2022-11-20] MEDS: AMIODARONE HCL 200 MG TABLET PO SCH ×2 (10:05→22:01)
[2022-11-20] MEDS: ALBUMIN HUMAN 25% 50 ML IV SCH ×3 (12:19→22:10)
[2022-11-20] MEDS: 0.45% NACL 1,000 ML IV SCH (12:20)
[2022-11-20] MEDS: IPRATROPIUM/ALBUTEROL SULFATE 3 ML AMPUL.NEB (DUONEB) INH PRN (21:24)
[2022-11-20] MEDS: SIMVASTATIN 20 MG TABLET PO SCH (22:02)
[2022-11-20] MEDS: INSULIN GLARGINE 100 UNITS/ML, 10 ML VIAL SUBCUT SCH (22:05)
[2022-11-21] VITALS (24 sets, daily range): BP systolic 92–137
[2022-11-21] MEDS: 0.45% NACL 1,000 ML IV SCH ×2 (03:25→19:05)
[2022-11-21 05:09] LABS: BASOPHILS % (AUTO) 0.1 % (0.0-2.0); HEMATOCRIT 25.8 % (36-54); HEMOGLOBIN 8.7 g/dL (14.0-18.0); LYMPHOCYTES # (AUTO) 0.3 K/uL (1.0-5.5); LYMPHOCYTES % (AUTO) 1.6 % (20.5-51.5); MEAN CORPUSCULAR HEMOGLOBIN 29 pg (27-31); MEAN CORPUSCULAR HGB CONC 34 % (32-36); MEAN CORPUSCULAR VOLUME 88 fL (79.0-98.0); MONOCYTES # (AUTO) 0.8 K/uL (0.0-1.0); MONOCYTES % (AUTO) 3.8 % (1.7-9.3); NEUTROPHILS # (AUTO) 20.5 K/uL (1.8-7.7); NEUTROPHILS % (AUTO) 94.5 % (40.0-70.0); PLATELET COUNT (AUTO) 252 K/uL (130-430); RED BLOOD CELL COUNT(AUTO) 2.95 MIL/uL (4.2-6.2); RED CELL DISTRIBUTION WIDTH 15.6 % (9.0-15.0); WHITE BLOOD COUNT (AUTO) 21.7 K/uL (4.8-10.8)
[2022-11-21 06:03] LABS: ANION GAP 9 (5-15); CALCIUM 7.5 mg/dL (8.4-11.0); CHLORIDE 109 mmol/L (98-107); CREATININE 1.68 mg/dL (0.55-1.30); GLUCOSE 161 mg/dL (70-99); UREA NITROGEN, BLOOD 53 mg/dL (8-21)
[2022-11-21] MEDS: PANTOPRAZOLE SODIUM 40 MG in NS 50 ML IV SCH ×4 (06:11→20:28)
[2022-11-21] MEDS: ASCORBIC ACID 500 MG TABLET PO SCH (08:07)
[2022-11-21] MEDS: DEXAMETHASONE SOD PHOSPHATE 10 MG/ML VIAL IVP SCH (08:07)
[2022-11-21] MEDS: TERAZOSIN HCL 1 MG CAPSULE (HYTRIN) PO SCH (08:08)
[2022-11-21] MEDS: LEVOTHYROXINE SODIUM 0.05 MG TABLET PO SCH (08:08)
[2022-11-21] MEDS: METOPROLOL TARTRATE 25 MG TABLET PO SCH ×2 (08:08→20:30)
[2022-11-21] MEDS: CHOLECALCIFEROL (VITAMIN D3) 2,000 UNIT TABLET PO SCH (08:08)
[2022-11-21] MEDS: AMIODARONE HCL 200 MG TABLET PO SCH ×2 (08:44→20:28)
[2022-11-21] MEDS ORDERED: FUROSEMIDE 20 MG/2 ML VIAL IVP ONE (13:15)
[2022-11-21] MEDS: levalbuterol HCL 0.63 MG/3 ML VIAL.NEB INH SCH ×2 (13:37→20:06)
[2022-11-21] MEDS: SIMVASTATIN 20 MG TABLET PO SCH (20:29)
[2022-11-21] MEDS: INSULIN GLARGINE 100 UNITS/ML, 10 ML VIAL SUBCUT SCH (20:59)
[2022-11-21] MEDS: INSULIN LISPRO SLIDING SCALE 100 UNITS/ML, 3 ML VIAL (humaLOG) SUBCUT PRN (21:00)
[2022-11-22] VITALS (24 sets, daily range): BP systolic 110–164
[2022-11-22] MEDS: PANTOPRAZOLE SODIUM 40 MG in NS 50 ML IV SCH ×5 (00:49→17:38)
[2022-11-22 05:13] LABS: BASOPHILS % (AUTO) 0.2 % (0.0-2.0); EOSINOPHILS % (AUTO) 0.1 % (0.0-4.0); HEMATOCRIT 26.4 % (36-54); HEMOGLOBIN 8.7 g/dL (14.0-18.0); LYMPHOCYTES # (AUTO) 0.3 K/uL (1.0-5.5); LYMPHOCYTES % (AUTO) 1.8 % (20.5-51.5); MEAN CORPUSCULAR HEMOGLOBIN 29 pg (27-31); MEAN CORPUSCULAR HGB CONC 33 % (32-36); MEAN CORPUSCULAR VOLUME 88 fL (79.0-98.0); MONOCYTES # (AUTO) 0.9 K/uL (0.0-1.0); MONOCYTES % (AUTO) 4.8 % (1.7-9.3); NEUTROPHILS # (AUTO) 17.5 K/uL (1.8-7.7); NEUTROPHILS % (AUTO) 93.1 % (40.0-70.0); PLATELET COUNT (AUTO) 250 K/uL (130-430); RED BLOOD CELL COUNT(AUTO) 2.99 MIL/uL (4.2-6.2); RED CELL DISTRIBUTION WIDTH 15.4 % (9.0-15.0); WHITE BLOOD COUNT (AUTO) 18.8 K/uL (4.8-10.8)
[2022-11-22 05:46] LABS: ANION GAP 9 (5-15); CALCIUM 7.6 mg/dL (8.4-11.0); CHLORIDE 107 mmol/L (98-107); GLUCOSE 130 mg/dL (70-99); UREA NITROGEN, BLOOD 55 mg/dL (8-21)
[2022-11-22] MEDS: levalbuterol HCL 0.63 MG/3 ML VIAL.NEB INH SCH ×3 (05:46→19:14)
[2022-11-22 05:47] LABS: ALANINE AMINOTRANSFERASE 58 U/L (12-78); ASPARTATE AMINOTRANSFERASE 22 U/L (10-37); C-REACTIVE PROTEIN QUANT 15.3 mg/dL (0-0.5); CREATININE 1.71 mg/dL (0.55-1.30); TOTAL BILIRUBIN 0.6 mg/dL (0.0-1.0)
[2022-11-22] MEDS: DEXAMETHASONE SOD PHOSPHATE 10 MG/ML VIAL IVP SCH (08:27)
[2022-11-22] MEDS: AMIODARONE HCL 200 MG TABLET PO SCH ×2 (08:29→20:40)
[2022-11-22] MEDS: TERAZOSIN HCL 1 MG CAPSULE (HYTRIN) PO SCH (08:29)
[2022-11-22] MEDS: PIPERACILLIN/TAZO 2.25G/DEX-IS 50 ML IV SCH ×3 (08:30→21:42)
[2022-11-22] MEDS: LEVOTHYROXINE SODIUM 0.05 MG TABLET PO SCH (08:30)
[2022-11-22] MEDS: ASCORBIC ACID 500 MG TABLET PO SCH (08:30)
[2022-11-22] MEDS: CHOLECALCIFEROL (VITAMIN D3) 2,000 UNIT TABLET PO SCH (08:30)
[2022-11-22] MEDS: DOXYCYCLINE HYCLATE 100 MG in D5W 100 ML IV SCH ×2 (08:31→20:40)
[2022-11-22] MEDS: METOPROLOL TARTRATE 25 MG TABLET PO SCH ×2 (08:32→20:41)
[2022-11-22] MEDS: 0.45% NACL 1,000 ML IV SCH (13:21)
[2022-11-22] MEDS: SIMVASTATIN 20 MG TABLET PO SCH (20:41)
[2022-11-22] MEDS: INSULIN GLARGINE 100 UNITS/ML, 10 ML VIAL SUBCUT SCH (21:12)
[2022-11-23] VITALS (24 sets, daily range): BP systolic 124–163
[2022-11-23] MEDS: levalbuterol HCL 0.63 MG/3 ML VIAL.NEB INH SCH ×4 (00:54→19:25)
[2022-11-23] MEDS: PANTOPRAZOLE SODIUM 40 MG in NS 50 ML IV SCH ×5 (02:30→22:26)
[2022-11-23] MEDS: PIPERACILLIN/TAZO 2.25G/DEX-IS 50 ML IV SCH ×3 (05:15→22:27)
[2022-11-23 05:43] LABS: EOSINOPHILS % (AUTO) 0.1 % (0.0-4.0); HEMATOCRIT 24.1 % (36-54); HEMOGLOBIN 8.1 g/dL (14.0-18.0); LYMPHOCYTES # (AUTO) 0.4 K/uL (1.0-5.5); LYMPHOCYTES % (AUTO) 2.2 % (20.5-51.5); MEAN CORPUSCULAR HEMOGLOBIN 29 pg (27-31); MEAN CORPUSCULAR HGB CONC 33 % (32-36); MEAN CORPUSCULAR VOLUME 88 fL (79.0-98.0); MONOCYTES # (AUTO) 1.1 K/uL (0.0-1.0); MONOCYTES % (AUTO) 6.7 % (1.7-9.3); NEUTROPHILS # (AUTO) 14.9 K/uL (1.8-7.7); PLATELET COUNT (AUTO) 227 K/uL (130-430); RED BLOOD CELL COUNT(AUTO) 2.74 MIL/uL (4.2-6.2); RED CELL DISTRIBUTION WIDTH 15.4 % (9.0-15.0); WHITE BLOOD COUNT (AUTO) 16.4 K/uL (4.8-10.8)
[2022-11-23 06:16] LABS: ANION GAP 7 (5-15); CALCIUM 7.5 mg/dL (8.4-11.0); CHLORIDE 108 mmol/L (98-107); CREATININE 1.49 mg/dL (0.55-1.30); GLUCOSE 89 mg/dL (70-99); UREA NITROGEN, BLOOD 46 mg/dL (8-21)
[2022-11-23] MEDS ORDERED: BISACODYL 5 MG TABLET.DR (DULCOLAX) PO ONE (08:45)
[2022-11-23] MEDS: DEXAMETHASONE SOD PHOSPHATE 10 MG/ML VIAL IVP SCH (09:07)
[2022-11-23] MEDS: TERAZOSIN HCL 1 MG CAPSULE (HYTRIN) PO SCH (09:08)
[2022-11-23] MEDS: AMIODARONE HCL 200 MG TABLET PO SCH ×2 (09:08→20:28)
[2022-11-23] MEDS: LEVOTHYROXINE SODIUM 0.05 MG TABLET PO SCH (09:09)
[2022-11-23] MEDS: METOPROLOL TARTRATE 25 MG TABLET PO SCH ×2 (09:09→20:28)
[2022-11-23] MEDS: ASCORBIC ACID 500 MG TABLET PO SCH (09:10)
[2022-11-23] MEDS: CHOLECALCIFEROL (VITAMIN D3) 2,000 UNIT TABLET PO SCH (09:10)
[2022-11-23] MEDS: DOXYCYCLINE HYCLATE 100 MG in D5W 100 ML IV SCH ×2 (09:12→20:27)
[2022-11-23] MEDS: DOCUSATE SODIUM 100 MG CAPSULE PO PRN (09:22)
[2022-11-23] MEDS: INSULIN LISPRO SLIDING SCALE 100 UNITS/ML, 3 ML VIAL (humaLOG) SUBCUT PRN ×2 (19:38→21:51)
[2022-11-23] MEDS: SIMVASTATIN 20 MG TABLET PO SCH (20:29)
[2022-11-23] MEDS: INSULIN GLARGINE 100 UNITS/ML, 10 ML VIAL SUBCUT SCH (21:50)
[2022-11-24] VITALS (25 sets, daily range): BP systolic 110–155
[2022-11-24] MEDS: levalbuterol HCL 0.63 MG/3 ML VIAL.NEB INH SCH ×4 (00:50→19:30)
[2022-11-24] MEDS: PANTOPRAZOLE SODIUM 40 MG in NS 50 ML IV SCH ×5 (03:52→22:32)
[2022-11-24 05:43] LABS: BASOPHILS % (AUTO) 0.1 % (0.0-2.0); EOSINOPHILS % (AUTO) 0.1 % (0.0-4.0); HEMATOCRIT 27.7 % (36-54); HEMOGLOBIN 9.2 g/dL (14.0-18.0); LYMPHOCYTES # (AUTO) 0.5 K/uL (1.0-5.5); LYMPHOCYTES % (AUTO) 2.6 % (20.5-51.5); MEAN CORPUSCULAR HEMOGLOBIN 29 pg (27-31); MEAN CORPUSCULAR HGB CONC 33 % (32-36); MEAN CORPUSCULAR VOLUME 88 fL (79.0-98.0); MONOCYTES # (AUTO) 1.2 K/uL (0.0-1.0); MONOCYTES % (AUTO) 6.3 % (1.7-9.3); NEUTROPHILS # (AUTO) 16.9 K/uL (1.8-7.7); NEUTROPHILS % (AUTO) 90.9 % (40.0-70.0); PLATELET COUNT (AUTO) 276 K/uL (130-430); RED BLOOD CELL COUNT(AUTO) 3.14 MIL/uL (4.2-6.2); RED CELL DISTRIBUTION WIDTH 14.9 % (9.0-15.0); WHITE BLOOD COUNT (AUTO) 18.6 K/uL (4.8-10.8)
[2022-11-24 05:52] LABS: ALANINE AMINOTRANSFERASE 76 U/L (12-78); ALBUMIN 1.9 g/dL (3.4-4.8); ANION GAP 9 (5-15); ASPARTATE AMINOTRANSFERASE 46 U/L (10-37); CALCIUM 7.8 mg/dL (8.4-11.0); CHLORIDE 106 mmol/L (98-107); CREATININE 1.58 mg/dL (0.55-1.30); GLUCOSE 62 mg/dL (70-99); TOTAL BILIRUBIN 0.6 mg/dL (0.0-1.0); UREA NITROGEN, BLOOD 48 mg/dL (8-21)
[2022-11-24] MEDS: PIPERACILLIN/TAZO 2.25G/DEX-IS 50 ML IV SCH ×3 (06:02→19:59)
[2022-11-24] MEDS: DEXAMETHASONE SOD PHOSPHATE 10 MG/ML VIAL IVP SCH (09:22)
[2022-11-24] MEDS: CHOLECALCIFEROL (VITAMIN D3) 2,000 UNIT TABLET PO SCH (09:23)
[2022-11-24] MEDS: METOPROLOL TARTRATE 25 MG TABLET PO SCH ×2 (09:23→19:56)
[2022-11-24] MEDS: AMIODARONE HCL 200 MG TABLET PO SCH ×2 (09:24→19:55)
[2022-11-24] MEDS: LEVOTHYROXINE SODIUM 0.05 MG TABLET PO SCH (09:24)
[2022-11-24] MEDS: ASCORBIC ACID 500 MG TABLET PO SCH (09:24)
[2022-11-24] MEDS: DOXYCYCLINE HYCLATE 100 MG in D5W 100 ML IV SCH ×2 (09:25→19:54)
[2022-11-24] MEDS: TERAZOSIN HCL 1 MG CAPSULE (HYTRIN) PO SCH (09:25)
[2022-11-24] MEDS: 0.45% NACL 1,000 ML IV SCH (09:27)
[2022-11-24] MEDS: INSULIN LISPRO SLIDING SCALE 100 UNITS/ML, 3 ML VIAL (humaLOG) SUBCUT PRN (18:16)
[2022-11-24] MEDS: SIMVASTATIN 20 MG TABLET PO SCH (19:56)
[2022-11-24] MEDS: INSULIN GLARGINE 100 UNITS/ML, 10 ML VIAL SUBCUT SCH (20:28)
[2022-11-25] VITALS (22 sets, daily range): BP systolic 105–144
[2022-11-25] MEDS: levalbuterol HCL 0.63 MG/3 ML VIAL.NEB INH SCH ×4 (00:35→19:50)
[2022-11-25 05:23] LABS: BASOPHILS % (AUTO) 0.1 % (0.0-2.0); EOSINOPHILS % (AUTO) 0.1 % (0.0-4.0); HEMATOCRIT 25.4 % (36-54); HEMOGLOBIN 8.4 g/dL (14.0-18.0); LYMPHOCYTES # (AUTO) 0.5 K/uL (1.0-5.5); LYMPHOCYTES % (AUTO) 2.9 % (20.5-51.5); MEAN CORPUSCULAR HEMOGLOBIN 29 pg (27-31); MEAN CORPUSCULAR HGB CONC 33 % (32-36); MEAN CORPUSCULAR VOLUME 88 fL (79.0-98.0); MONOCYTES # (AUTO) 0.9 K/uL (0.0-1.0); MONOCYTES % (AUTO) 5.7 % (1.7-9.3); NEUTROPHILS # (AUTO) 14.3 K/uL (1.8-7.7); NEUTROPHILS % (AUTO) 91.2 % (40.0-70.0); PLATELET COUNT (AUTO) 260 K/uL (130-430); RED BLOOD CELL COUNT(AUTO) 2.88 MIL/uL (4.2-6.2); RED CELL DISTRIBUTION WIDTH 15.1 % (9.0-15.0); WHITE BLOOD COUNT (AUTO) 15.7 K/uL (4.8-10.8)
[2022-11-25 06:03] LABS: ALANINE AMINOTRANSFERASE 73 U/L (12-78); ALBUMIN 1.7 g/dL (3.4-4.8); ANION GAP 8 (5-15); ASPARTATE AMINOTRANSFERASE 52 U/L (10-37); C-REACTIVE PROTEIN QUANT 11.9 mg/dL (0-0.5); CALCIUM 7.6 mg/dL (8.4-11.0); CHLORIDE 103 mmol/L (98-107); CREATININE 1.52 mg/dL (0.55-1.30); GLUCOSE 76 mg/dL (70-99); TOTAL BILIRUBIN 0.7 mg/dL (0.0-1.0); UREA NITROGEN, BLOOD 42 mg/dL (8-21)
[2022-11-25] MEDS: PIPERACILLIN/TAZO 2.25G/DEX-IS 50 ML IV SCH ×3 (06:11→20:58)
[2022-11-25] MEDS: PANTOPRAZOLE SODIUM 40 MG in NS 50 ML IV SCH ×2 (06:11→08:35)
[2022-11-25] MEDS: 0.45% NACL 1,000 ML IV SCH (06:12)
[2022-11-25] MEDS: DEXAMETHASONE SOD PHOSPHATE 10 MG/ML VIAL IVP SCH (08:34)
[2022-11-25] MEDS: DOXYCYCLINE HYCLATE 100 MG in D5W 100 ML IV SCH ×2 (08:36→20:59)
[2022-11-25] MEDS: METOPROLOL TARTRATE 25 MG TABLET PO SCH ×2 (08:37→21:00)
[2022-11-25] MEDS: TERAZOSIN HCL 1 MG CAPSULE (HYTRIN) PO SCH (08:37)
[2022-11-25] MEDS: ASCORBIC ACID 500 MG TABLET PO SCH (08:38)
[2022-11-25] MEDS: LEVOTHYROXINE SODIUM 0.05 MG TABLET PO SCH (08:38)
[2022-11-25] MEDS: CHOLECALCIFEROL (VITAMIN D3) 2,000 UNIT TABLET PO SCH (08:38)
[2022-11-25] MEDS: AMIODARONE HCL 200 MG TABLET PO SCH ×2 (08:40→20:59)
[2022-11-25] MEDS: DOCUSATE SODIUM 100 MG CAPSULE PO PRN (09:16)
[2022-11-25] MEDS: ONDANSETRON HCL 4 MG/2 ML VIAL IVP PRN (09:16)
[2022-11-25] MEDS ORDERED: MINERAL OIL 30 ML UDC PO ONE (13:00)
[2022-11-25] MEDS ORDERED: POLYETHYLENE GLYCOL 3350, 17 GM/ POWD.PACK PO ONE (13:00)
[2022-11-25] MEDS ORDERED: PANTOPRAZOLE SODIUM 40 MG/VIAL (PROTONIX) IVP ONE (13:00)
[2022-11-25 20:28] LABS: BASOPHILS % (AUTO) 0.1 % (0.0-2.0); EOSINOPHILS % (AUTO) 0.1 % (0.0-4.0); HEMATOCRIT 24.1 % (36-54); LYMPHOCYTES # (AUTO) 0.3 K/uL (1.0-5.5); MEAN CORPUSCULAR HEMOGLOBIN 29 pg (27-31); MEAN CORPUSCULAR HGB CONC 33 % (32-36); MEAN CORPUSCULAR VOLUME 88 fL (79.0-98.0); MONOCYTES % (AUTO) 5.9 % (1.7-9.3); NEUTROPHILS # (AUTO) 15.2 K/uL (1.8-7.7); NEUTROPHILS % (AUTO) 91.9 % (40.0-70.0); PLATELET COUNT (AUTO) 247 K/uL (130-430); RED BLOOD CELL COUNT(AUTO) 2.73 MIL/uL (4.2-6.2); RED CELL DISTRIBUTION WIDTH 15.1 % (9.0-15.0); WHITE BLOOD COUNT (AUTO) 16.5 K/uL (4.8-10.8)
[2022-11-25] MEDS: SIMVASTATIN 20 MG TABLET PO SCH (21:00)
[2022-11-25] MEDS: INSULIN GLARGINE 100 UNITS/ML, 10 ML VIAL SUBCUT SCH (21:00)
[2022-11-26] VITALS (24 sets, daily range): BP systolic 90–131
[2022-11-26] MEDS: levalbuterol HCL 0.63 MG/3 ML VIAL.NEB INH SCH ×4 (01:10→19:40)
[2022-11-26] MEDS: PIPERACILLIN/TAZO 2.25G/DEX-IS 50 ML IV SCH ×3 (05:06→21:50)
[2022-11-26 05:27] LABS: BASOPHILS % (AUTO) 0.1 % (0.0-2.0); EOSINOPHILS % (AUTO) 0.3 % (0.0-4.0); HEMATOCRIT 23.8 % (36-54); HEMOGLOBIN 7.8 g/dL (14.0-18.0); LYMPHOCYTES # (AUTO) 0.5 K/uL (1.0-5.5); LYMPHOCYTES % (AUTO) 3.6 % (20.5-51.5); MEAN CORPUSCULAR HEMOGLOBIN 29 pg (27-31); MEAN CORPUSCULAR HGB CONC 33 % (32-36); MEAN CORPUSCULAR VOLUME 88 fL (79.0-98.0); MONOCYTES # (AUTO) 0.9 K/uL (0.0-1.0); MONOCYTES % (AUTO) 5.9 % (1.7-9.3); NEUTROPHILS # (AUTO) 13.3 K/uL (1.8-7.7); NEUTROPHILS % (AUTO) 90.1 % (40.0-70.0); PLATELET COUNT (AUTO) 234 K/uL (130-430); RED CELL DISTRIBUTION WIDTH 15.1 % (9.0-15.0); WHITE BLOOD COUNT (AUTO) 14.7 K/uL (4.8-10.8)
[2022-11-26 06:07] LABS: ANION GAP 7 (5-15); CALCIUM 7.6 mg/dL (8.4-11.0); CHLORIDE 103 mmol/L (98-107); CREATININE 1.77 mg/dL (0.55-1.30); GLUCOSE 96 mg/dL (70-99); UREA NITROGEN, BLOOD 44 mg/dL (8-21)
[2022-11-26] MEDS ORDERED: NS 500 ML IV ONE (08:30)
[2022-11-26] MEDS: MINERAL OIL 30 ML UDC PO SCH (09:00)
[2022-11-26] MEDS: POLYETHYLENE GLYCOL 3350, 17 GM/ POWD.PACK PO SCH (09:00)
[2022-11-26] MEDS: DOXYCYCLINE HYCLATE 100 MG in D5W 100 ML IV SCH ×2 (09:37→20:13)
[2022-11-26] MEDS: DEXAMETHASONE SOD PHOSPHATE 10 MG/ML VIAL IVP SCH (09:37)
[2022-11-26] MEDS: PANTOPRAZOLE SODIUM 40 MG/VIAL (PROTONIX) IVP SCH (09:37)
[2022-11-26] MEDS: TERAZOSIN HCL 1 MG CAPSULE (HYTRIN) PO SCH (09:38)
[2022-11-26] MEDS: METOPROLOL TARTRATE 25 MG TABLET PO SCH ×2 (09:38→20:15)
[2022-11-26] MEDS: LEVOTHYROXINE SODIUM 0.05 MG TABLET PO SCH (09:39)
[2022-11-26] MEDS: AMIODARONE HCL 200 MG TABLET PO SCH ×2 (09:39→20:14)
[2022-11-26] MEDS: ASCORBIC ACID 500 MG TABLET PO SCH (09:39)
[2022-11-26] MEDS: CHOLECALCIFEROL (VITAMIN D3) 2,000 UNIT TABLET PO SCH (09:40)
[2022-11-26] MEDS: 0.45% NACL 1,000 ML IV SCH ×2 (18:40)
[2022-11-26] MEDS: SIMVASTATIN 20 MG TABLET PO SCH (20:15)
[2022-11-26 20:32] LABS: BASOPHILS % (AUTO) 0.1 % (0.0-2.0); LYMPHOCYTES # (AUTO) 0.3 K/uL (1.0-5.5); NEUTROPHILS # (AUTO) 13.9 K/uL (1.8-7.7)
[2022-11-26] MEDS: INSULIN GLARGINE 100 UNITS/ML, 10 ML VIAL SUBCUT SCH (20:32)
[2022-11-26 20:34] LABS: HEMATOCRIT 23.4 % (36-54); HEMOGLOBIN 7.6 g/dL (14.0-18.0); LYMPHOCYTES % (AUTO) 1.9 % (20.5-51.5); MEAN CORPUSCULAR HEMOGLOBIN 29 pg (27-31); MEAN CORPUSCULAR HGB CONC 33 % (32-36); MEAN CORPUSCULAR VOLUME 88 fL (79.0-98.0); MONOCYTES # (AUTO) 0.6 K/uL (0.0-1.0); MONOCYTES % (AUTO) 4.2 % (1.7-9.3); NEUTROPHILS % (AUTO) 93.8 % (40.0-70.0); PLATELET COUNT (AUTO) 236 K/uL (130-430); RED BLOOD CELL COUNT(AUTO) 2.66 MIL/uL (4.2-6.2); RED CELL DISTRIBUTION WIDTH 14.8 % (9.0-15.0); WHITE BLOOD COUNT (AUTO) 14.8 K/uL (4.8-10.8)
[2022-11-27] VITALS (24 sets, daily range): BP systolic 99–131
[2022-11-27] MEDS: 0.45% NACL 1,000 ML IV SCH ×2 (00:02→10:13)
[2022-11-27] MEDS: levalbuterol HCL 0.63 MG/3 ML VIAL.NEB INH SCH ×4 (01:10→19:20)
[2022-11-27 06:03] LABS: BASOPHILS % (AUTO) 0.1 % (0.0-2.0); EOSINOPHILS % (AUTO) 0.2 % (0.0-4.0); HEMATOCRIT 23.3 % (36-54); HEMOGLOBIN 7.6 g/dL (14.0-18.0); LYMPHOCYTES # (AUTO) 0.5 K/uL (1.0-5.5); LYMPHOCYTES % (AUTO) 3.7 % (20.5-51.5); MEAN CORPUSCULAR HEMOGLOBIN 29 pg (27-31); MEAN CORPUSCULAR HGB CONC 33 % (32-36); MEAN CORPUSCULAR VOLUME 88 fL (79.0-98.0); MONOCYTES # (AUTO) 0.8 K/uL (0.0-1.0); MONOCYTES % (AUTO) 5.8 % (1.7-9.3); NEUTROPHILS % (AUTO) 90.2 % (40.0-70.0); PLATELET COUNT (AUTO) 217 K/uL (130-430); RED BLOOD CELL COUNT(AUTO) 2.65 MIL/uL (4.2-6.2); RED CELL DISTRIBUTION WIDTH 14.9 % (9.0-15.0); WHITE BLOOD COUNT (AUTO) 14.4 K/uL (4.8-10.8)
[2022-11-27 06:10] LABS: ALANINE AMINOTRANSFERASE 71 U/L (12-78); ALBUMIN 1.5 g/dL (3.4-4.8); ANION GAP 8 (5-15); ASPARTATE AMINOTRANSFERASE 76 U/L (10-37); CHLORIDE 101 mmol/L (98-107); CREATININE 1.57 mg/dL (0.55-1.30); GLUCOSE 81 mg/dL (70-99); TOTAL BILIRUBIN 0.5 mg/dL (0.0-1.0); UREA NITROGEN, BLOOD 40 mg/dL (8-21)
[2022-11-27 06:12] LABS: CALCIUM 6.9 mg/dL (8.4-11.0)
[2022-11-27] MEDS: PIPERACILLIN/TAZO 2.25G/DEX-IS 50 ML IV SCH ×3 (06:13→21:55)
[2022-11-27] MEDS: DOXYCYCLINE HYCLATE 100 MG in D5W 100 ML IV SCH ×2 (08:51→20:34)
[2022-11-27] MEDS: LEVOTHYROXINE SODIUM 0.05 MG TABLET PO SCH (08:51)
[2022-11-27] MEDS: ASCORBIC ACID 500 MG TABLET PO SCH (08:52)
[2022-11-27] MEDS: CHOLECALCIFEROL (VITAMIN D3) 2,000 UNIT TABLET PO SCH (08:52)
[2022-11-27] MEDS: TERAZOSIN HCL 1 MG CAPSULE (HYTRIN) PO SCH (08:52)
[2022-11-27] MEDS: DEXAMETHASONE SOD PHOSPHATE 10 MG/ML VIAL IVP SCH (08:53)
[2022-11-27] MEDS: POLYETHYLENE GLYCOL 3350, 17 GM/ POWD.PACK PO SCH (08:53)
[2022-11-27] MEDS: MINERAL OIL 30 ML UDC PO SCH (08:53)
[2022-11-27] MEDS: AMIODARONE HCL 200 MG TABLET PO SCH (08:53)
[2022-11-27] MEDS: PANTOPRAZOLE SODIUM 40 MG/VIAL (PROTONIX) IVP SCH (08:54)
[2022-11-27] MEDS: METOPROLOL TARTRATE 25 MG TABLET PO SCH ×2 (08:55→20:34)
[2022-11-27] MEDS: SOD FERRIC GLUC COMPLEX/SUC 125 MG in NS 100 ML IV SCH (12:43)
[2022-11-27] MEDS: ONDANSETRON HCL 4 MG/2 ML VIAL IVP PRN (12:54)
[2022-11-27 20:20] LABS: BASOPHILS # (AUTO) 0.1 K/uL (0.0-0.2); BASOPHILS % (AUTO) 0.9 % (0.0-2.0); HEMATOCRIT 23.8 % (36-54); LYMPHOCYTES # (AUTO) 0.4 K/uL (1.0-5.5); LYMPHOCYTES % (AUTO) 2.4 % (20.5-51.5); MEAN CORPUSCULAR HEMOGLOBIN 30 pg (27-31); MEAN CORPUSCULAR HGB CONC 33 % (32-36); MEAN CORPUSCULAR VOLUME 88 fL (79.0-98.0); MONOCYTES # (AUTO) 0.8 K/uL (0.0-1.0); MONOCYTES % (AUTO) 5.3 % (1.7-9.3); NEUTROPHILS # (AUTO) 13.8 K/uL (1.8-7.7); NEUTROPHILS % (AUTO) 91.4 % (40.0-70.0); PLATELET COUNT (AUTO) 199 K/uL (130-430); RED CELL DISTRIBUTION WIDTH 14.6 % (9.0-15.0); WHITE BLOOD COUNT (AUTO) 15.1 K/uL (4.8-10.8)
[2022-11-27] MEDS: SIMVASTATIN 20 MG TABLET PO SCH (20:34)
[2022-11-27] MEDS: INSULIN GLARGINE 100 UNITS/ML, 10 ML VIAL SUBCUT SCH (20:55)
[2022-11-28] VITALS (24 sets, daily range): BP systolic 97–136
[2022-11-28] MEDS: levalbuterol HCL 0.63 MG/3 ML VIAL.NEB INH SCH ×4 (01:00→19:50)
[2022-11-28] MEDS: 0.45% NACL 1,000 ML IV SCH ×2 (02:42→14:33)
[2022-11-28 05:20] LABS: BASOPHILS % (AUTO) 0.2 % (0.0-2.0); EOSINOPHILS % (AUTO) 0.3 % (0.0-4.0); HEMATOCRIT 24.6 % (36-54); HEMOGLOBIN 8.3 g/dL (14.0-18.0); LYMPHOCYTES # (AUTO) 0.6 K/uL (1.0-5.5); LYMPHOCYTES % (AUTO) 3.7 % (20.5-51.5); MEAN CORPUSCULAR HEMOGLOBIN 30 pg (27-31); MEAN CORPUSCULAR HGB CONC 34 % (32-36); MEAN CORPUSCULAR VOLUME 88 fL (79.0-98.0); MONOCYTES # (AUTO) 0.9 K/uL (0.0-1.0); MONOCYTES % (AUTO) 6.2 % (1.7-9.3); NEUTROPHILS # (AUTO) 13.5 K/uL (1.8-7.7); NEUTROPHILS % (AUTO) 89.6 % (40.0-70.0); PLATELET COUNT (AUTO) 222 K/uL (130-430); RED BLOOD CELL COUNT(AUTO) 2.79 MIL/uL (4.2-6.2); RED CELL DISTRIBUTION WIDTH 14.7 % (9.0-15.0)
[2022-11-28] MEDS: PIPERACILLIN/TAZO 2.25G/DEX-IS 50 ML IV SCH ×3 (05:45→22:46)
[2022-11-28] MEDS: PANTOPRAZOLE SODIUM 40 MG/VIAL (PROTONIX) IVP SCH ×2 (08:27→21:32)
[2022-11-28] MEDS: CHOLECALCIFEROL (VITAMIN D3) 2,000 UNIT TABLET PO SCH (08:28)
[2022-11-28] MEDS: DEXAMETHASONE SOD PHOSPHATE 10 MG/ML VIAL IVP SCH (08:28)
[2022-11-28] MEDS: DOXYCYCLINE HYCLATE 100 MG in D5W 100 ML IV SCH ×2 (08:28→21:31)
[2022-11-28] MEDS: LEVOTHYROXINE SODIUM 0.05 MG TABLET PO SCH (08:28)
[2022-11-28] MEDS: TERAZOSIN HCL 1 MG CAPSULE (HYTRIN) PO SCH (08:29)
[2022-11-28] MEDS: AMIODARONE HCL 200 MG TABLET PO SCH ×3 (08:29→18:56)
[2022-11-28] MEDS: ASCORBIC ACID 500 MG TABLET PO SCH (08:30)
[2022-11-28] MEDS: MINERAL OIL 30 ML UDC PO SCH (08:30)
[2022-11-28] MEDS: METOPROLOL TARTRATE 25 MG TABLET PO SCH ×3 (08:30→21:33)
[2022-11-28] MEDS: POLYETHYLENE GLYCOL 3350, 17 GM/ POWD.PACK PO SCH (08:30)
[2022-11-28 09:00] LABS: ANION GAP 5 (5-15); CALCIUM 7.1 mg/dL (8.4-11.0); CHLORIDE 99 mmol/L (98-107); CREATININE 1.45 mg/dL (0.55-1.30); GLUCOSE 84 mg/dL (70-99); UREA NITROGEN, BLOOD 35 mg/dL (8-21)
[2022-11-28] MEDS: SOD FERRIC GLUC COMPLEX/SUC 125 MG in NS 100 ML IV SCH (12:35)
[2022-11-28] MEDS: NACL 0.9% 1,000 ML IV SCH (15:01)
[2022-11-28] MEDS: SIMVASTATIN 20 MG TABLET PO SCH (21:33)
[2022-11-28] MEDS: INSULIN GLARGINE 100 UNITS/ML, 10 ML VIAL SUBCUT SCH (22:43)
[2022-11-29] VITALS (22 sets, daily range): BP systolic 105–156
[2022-11-29] MEDS: levalbuterol HCL 0.63 MG/3 ML VIAL.NEB INH SCH ×4 (01:06→19:31)
[2022-11-29 05:31] LABS: BASOPHILS % (AUTO) 0.1 % (0.0-2.0); EOSINOPHILS # (AUTO) 0.1 K/uL (0.0-0.4); EOSINOPHILS % (AUTO) 0.7 % (0.0-4.0); HEMATOCRIT 23.3 % (36-54); HEMOGLOBIN 7.8 g/dL (14.0-18.0); LYMPHOCYTES # (AUTO) 0.6 K/uL (1.0-5.5); LYMPHOCYTES % (AUTO) 4.6 % (20.5-51.5); MEAN CORPUSCULAR HEMOGLOBIN 29 pg (27-31); MEAN CORPUSCULAR HGB CONC 34 % (32-36); MEAN CORPUSCULAR VOLUME 87 fL (79.0-98.0); MONOCYTES # (AUTO) 0.7 K/uL (0.0-1.0); MONOCYTES % (AUTO) 5.2 % (1.7-9.3); NEUTROPHILS # (AUTO) 12.5 K/uL (1.8-7.7); NEUTROPHILS % (AUTO) 89.4 % (40.0-70.0); PLATELET COUNT (AUTO) 218 K/uL (130-430); RED BLOOD CELL COUNT(AUTO) 2.68 MIL/uL (4.2-6.2); RED CELL DISTRIBUTION WIDTH 14.6 % (9.0-15.0)
[2022-11-29 05:43] LABS: ALANINE AMINOTRANSFERASE 94 U/L (12-78); ALBUMIN 1.5 g/dL (3.4-4.8); ANION GAP 9 (5-15); ASPARTATE AMINOTRANSFERASE 87 U/L (10-37); CALCIUM 7.1 mg/dL (8.4-11.0); CHLORIDE 99 mmol/L (98-107); CREATININE 1.44 mg/dL (0.55-1.30); GLUCOSE 95 mg/dL (70-99); TOTAL BILIRUBIN 0.5 mg/dL (0.0-1.0); UREA NITROGEN, BLOOD 44 mg/dL (8-21)
[2022-11-29] MEDS: PIPERACILLIN/TAZO 2.25G/DEX-IS 50 ML IV SCH ×3 (06:48→21:15)
[2022-11-29] MEDS: MINERAL OIL 30 ML UDC PO SCH (09:00)
[2022-11-29] MEDS: POLYETHYLENE GLYCOL 3350, 17 GM/ POWD.PACK PO SCH (09:00)
[2022-11-29] MEDS: DOXYCYCLINE HYCLATE 100 MG in D5W 100 ML IV SCH ×2 (09:16→21:13)
[2022-11-29] MEDS: PANTOPRAZOLE SODIUM 40 MG/VIAL (PROTONIX) IVP SCH ×2 (09:22→21:14)
[2022-11-29] MEDS: DEXAMETHASONE SOD PHOSPHATE 10 MG/ML VIAL IVP SCH (09:22)
[2022-11-29] MEDS: ASCORBIC ACID 500 MG TABLET PO SCH (09:23)
[2022-11-29] MEDS: METOPROLOL TARTRATE 25 MG TABLET PO SCH ×2 (09:23→21:14)
[2022-11-29] MEDS: CHOLECALCIFEROL (VITAMIN D3) 2,000 UNIT TABLET PO SCH (09:23)
[2022-11-29] MEDS: LEVOTHYROXINE SODIUM 0.05 MG TABLET PO SCH (09:26)
[2022-11-29] MEDS: AMIODARONE HCL 200 MG TABLET PO SCH (09:28)
[2022-11-29] MEDS ORDERED: BALSAM PERU/CASTOR OIL 56.7 GM OINT...G. TP SCH (11:00)
[2022-11-29] MEDS ORDERED: MENTHOL/ZINC OXIDE 113 GM OINT. TP SCH (11:00)
[2022-11-29] MEDS ORDERED: BALSAM PERU/CASTOR OIL 56.7 GM OINT...G. TP ONE ×2 (11:30→12:00)
[2022-11-29] MEDS ORDERED: MENTHOL/ZINC OXIDE 113 GM OINT. TP ONE ×2 (11:30→12:00)
[2022-11-29] MEDS: SOD FERRIC GLUC COMPLEX/SUC 125 MG in NS 100 ML IV SCH (11:59)
[2022-11-29] MEDS: NACL 0.9% 1,000 ML IV SCH ×2 (13:24→19:15)
[2022-11-29] MEDS: INSULIN GLARGINE 100 UNITS/ML, 10 ML VIAL SUBCUT SCH (21:00)
[2022-11-29] MEDS: SIMVASTATIN 20 MG TABLET PO SCH (21:14)
[2022-11-29] MEDS: MENTHOL/ZINC OXIDE 113 GM OINT. TP SCH (21:15)
[2022-11-29] MEDS: BALSAM PERU/CASTOR OIL 56.7 GM OINT...G. TP SCH (21:15)
[2022-11-30] VITALS (22 sets, daily range): BP systolic 99–138
[2022-11-30] MEDS: levalbuterol HCL 0.63 MG/3 ML VIAL.NEB INH SCH ×4 (01:33→19:33)
[2022-11-30 05:03] LABS: BASOPHILS % (AUTO) 0.1 % (0.0-2.0); EOSINOPHILS # (AUTO) 0.1 K/uL (0.0-0.4); EOSINOPHILS % (AUTO) 0.7 % (0.0-4.0); HEMATOCRIT 24.4 % (36-54); HEMOGLOBIN 8.1 g/dL (14.0-18.0); LYMPHOCYTES # (AUTO) 0.8 K/uL (1.0-5.5); LYMPHOCYTES % (AUTO) 6.3 % (20.5-51.5); MEAN CORPUSCULAR HEMOGLOBIN 29 pg (27-31); MEAN CORPUSCULAR HGB CONC 33 % (32-36); MEAN CORPUSCULAR VOLUME 87 fL (79.0-98.0); MONOCYTES # (AUTO) 0.7 K/uL (0.0-1.0); MONOCYTES % (AUTO) 5.4 % (1.7-9.3); NEUTROPHILS # (AUTO) 11.5 K/uL (1.8-7.7); NEUTROPHILS % (AUTO) 87.5 % (40.0-70.0); PLATELET COUNT (AUTO) 187 K/uL (130-430); RED CELL DISTRIBUTION WIDTH 14.5 % (9.0-15.0); WHITE BLOOD COUNT (AUTO) 13.2 K/uL (4.8-10.8)
[2022-11-30] MEDS: NACL 0.9% 1,000 ML IV SCH ×2 (05:27→14:16)
[2022-11-30] MEDS: PIPERACILLIN/TAZO 2.25G/DEX-IS 50 ML IV SCH ×2 (05:27→14:14)
[2022-11-30 05:35] LABS: ANION GAP 8 (5-15); CHLORIDE 101 mmol/L (98-107); CREATININE 1.41 mg/dL (0.55-1.30); GLUCOSE 93 mg/dL (70-99); UREA NITROGEN, BLOOD 43 mg/dL (8-21)
[2022-11-30] MEDS: MENTHOL/ZINC OXIDE 113 GM OINT. TP SCH ×2 (08:24→23:07)
[2022-11-30] MEDS: BALSAM PERU/CASTOR OIL 56.7 GM OINT...G. TP SCH ×2 (08:24→23:08)
[2022-11-30] MEDS: MINERAL OIL 30 ML UDC PO SCH (08:24)
[2022-11-30] MEDS: DOXYCYCLINE HYCLATE 100 MG in D5W 100 ML IV SCH (08:25)
[2022-11-30] MEDS: PANTOPRAZOLE SODIUM 40 MG/VIAL (PROTONIX) IVP SCH ×2 (08:25→21:43)
[2022-11-30] MEDS: DEXAMETHASONE SOD PHOSPHATE 10 MG/ML VIAL IVP SCH (08:25)
[2022-11-30] MEDS: POLYETHYLENE GLYCOL 3350, 17 GM/ POWD.PACK PO SCH (08:25)
[2022-11-30] MEDS: LEVOTHYROXINE SODIUM 0.05 MG TABLET PO SCH (08:26)
[2022-11-30] MEDS: CHOLECALCIFEROL (VITAMIN D3) 2,000 UNIT TABLET PO SCH (08:26)
[2022-11-30] MEDS: ASCORBIC ACID 500 MG TABLET PO SCH (08:26)
[2022-11-30] MEDS: METOPROLOL TARTRATE 25 MG TABLET PO SCH ×2 (08:27→20:45)
[2022-11-30] MEDS: AMIODARONE HCL 200 MG TABLET PO SCH (08:27)
[2022-11-30] MEDS ORDERED: BALSAM PERU/CASTOR OIL 56.7 GM OINT...G. TP SCH (09:00)
[2022-11-30] MEDS ORDERED: MENTHOL/ZINC OXIDE 113 GM OINT. TP SCH (09:00)
[2022-11-30] MEDS: SOD FERRIC GLUC COMPLEX/SUC 125 MG in NS 100 ML IV SCH (12:16)
[2022-11-30] MEDS: INSULIN LISPRO SLIDING SCALE 100 UNITS/ML, 3 ML VIAL (humaLOG) SUBCUT PRN (13:00)
[2022-11-30] MEDS: SIMVASTATIN 20 MG TABLET PO SCH (20:45)
[2022-11-30] MEDS: INSULIN GLARGINE 100 UNITS/ML, 10 ML VIAL SUBCUT SCH (20:57)
[2022-12-01 00:31] VITALS: BP_SYST 110
[2022-12-01] MEDS: levalbuterol HCL 0.63 MG/3 ML VIAL.NEB INH SCH ×4 (01:05→19:33)
[2022-12-01] MEDS: NACL 0.9% 1,000 ML IV SCH ×3 (01:16→21:54)
[2022-12-01 02:14] VITALS: BP_SYST 113
[2022-12-01 06:05] LABS: BASOPHILS % (AUTO) 0.3 % (0.0-2.0); EOSINOPHILS % (AUTO) 0.3 % (0.0-4.0); HEMOGLOBIN 7.9 g/dL (14.0-18.0); LYMPHOCYTES # (AUTO) 0.7 K/uL (1.0-5.5); LYMPHOCYTES % (AUTO) 6.3 % (20.5-51.5); MEAN CORPUSCULAR HEMOGLOBIN 29 pg (27-31); MEAN CORPUSCULAR HGB CONC 33 % (32-36); MEAN CORPUSCULAR VOLUME 87 fL (79.0-98.0); MONOCYTES # (AUTO) 0.7 K/uL (0.0-1.0); NEUTROPHILS # (AUTO) 10.1 K/uL (1.8-7.7); NEUTROPHILS % (AUTO) 87.1 % (40.0-70.0); PLATELET COUNT (AUTO) 185 K/uL (130-430); RED BLOOD CELL COUNT(AUTO) 2.76 MIL/uL (4.2-6.2); RED CELL DISTRIBUTION WIDTH 14.9 % (9.0-15.0); WHITE BLOOD COUNT (AUTO) 11.6 K/uL (4.8-10.8)
[2022-12-01 06:29] LABS: ANION GAP 11 (5-15); CHLORIDE 100 mmol/L (98-107); CREATININE 1.27 mg/dL (0.55-1.30); GLUCOSE 103 mg/dL (70-99); UREA NITROGEN, BLOOD 45 mg/dL (8-21)
[2022-12-01 08:30] VITALS: BP_SYST 110
[2022-12-01] MEDS ORDERED: CALCIUM CARBONATE 650 MG TABLET PO SCH (09:15)
[2022-12-01] MEDS ORDERED: CALCIUM 500 MG/TAB PO ONE (09:15)
[2022-12-01] MEDS ORDERED: POTASSIUM CHLORIDE 20 MEQ TAB.PRT.SR PO ONE (09:15)
[2022-12-01] MEDS: PANTOPRAZOLE SODIUM 40 MG/VIAL (PROTONIX) IVP SCH ×2 (09:39→21:53)
[2022-12-01] MEDS: DEXAMETHASONE SOD PHOSPHATE 10 MG/ML VIAL IVP SCH (09:39)
[2022-12-01] MEDS: CHOLECALCIFEROL (VITAMIN D3) 2,000 UNIT TABLET PO SCH (09:40)
[2022-12-01] MEDS: POLYETHYLENE GLYCOL 3350, 17 GM/ POWD.PACK PO SCH (09:40)
[2022-12-01] MEDS: LEVOTHYROXINE SODIUM 0.05 MG TABLET PO SCH (09:40)
[2022-12-01] MEDS: MINERAL OIL 30 ML UDC PO SCH (09:40)
[2022-12-01] MEDS: ASCORBIC ACID 500 MG TABLET PO SCH (09:41)
[2022-12-01] MEDS: MENTHOL/ZINC OXIDE 113 GM OINT. TP SCH ×2 (11:00→21:54)
[2022-12-01] MEDS: BALSAM PERU/CASTOR OIL 56.7 GM OINT...G. TP SCH ×2 (11:00→21:54)
[2022-12-01] MEDS: METOPROLOL TARTRATE 25 MG TABLET PO SCH ×2 (11:10→22:39)
[2022-12-01] MEDS: AMIODARONE HCL 200 MG TABLET PO SCH (11:10)
[2022-12-01 11:48] VITALS: BP_SYST 97
[2022-12-01] MEDS: SOD FERRIC GLUC COMPLEX/SUC 125 MG in NS 100 ML IV SCH (12:16)
[2022-12-01] MEDS: INSULIN LISPRO SLIDING SCALE 100 UNITS/ML, 3 ML VIAL (humaLOG) SUBCUT PRN (17:00)
[2022-12-01 19:01] VITALS: BP_SYST 108
[2022-12-01 19:40] VITALS: BP_SYST 107
[2022-12-01] MEDS: INSULIN GLARGINE 100 UNITS/ML, 10 ML VIAL SUBCUT SCH (21:00)
[2022-12-01] MEDS: SIMVASTATIN 20 MG TABLET PO SCH (21:53)
[2022-12-01] MEDS: ONDANSETRON HCL 4 MG/2 ML VIAL IVP PRN (21:53)
[2022-12-02] MEDS: levalbuterol HCL 0.63 MG/3 ML VIAL.NEB INH SCH ×3 (00:44→13:26)
[2022-12-02 01:20] VITALS: BP_SYST 95
[2022-12-02 05:37] LABS: BASOPHILS % (AUTO) 0.1 % (0.0-2.0); EOSINOPHILS # (AUTO) 0.1 K/uL (0.0-0.4); EOSINOPHILS % (AUTO) 0.5 % (0.0-4.0); HEMATOCRIT 23.2 % (36-54); HEMOGLOBIN 7.8 g/dL (14.0-18.0); LYMPHOCYTES # (AUTO) 0.8 K/uL (1.0-5.5); LYMPHOCYTES % (AUTO) 7.6 % (20.5-51.5); MEAN CORPUSCULAR HEMOGLOBIN 29 pg (27-31); MEAN CORPUSCULAR HGB CONC 34 % (32-36); MEAN CORPUSCULAR VOLUME 88 fL (79.0-98.0); MONOCYTES # (AUTO) 0.7 K/uL (0.0-1.0); MONOCYTES % (AUTO) 6.1 % (1.7-9.3); NEUTROPHILS # (AUTO) 9.4 K/uL (1.8-7.7); NEUTROPHILS % (AUTO) 85.7 % (40.0-70.0); PLATELET COUNT (AUTO) 163 K/uL (130-430); RED BLOOD CELL COUNT(AUTO) 2.65 MIL/uL (4.2-6.2); RED CELL DISTRIBUTION WIDTH 14.7 % (9.0-15.0); WHITE BLOOD COUNT (AUTO) 10.9 K/uL (4.8-10.8)
[2022-12-02 06:02] LABS: ALANINE AMINOTRANSFERASE 160 U/L (12-78); ALBUMIN 1.4 g/dL (3.4-4.8); ANION GAP 8 (5-15); ASPARTATE AMINOTRANSFERASE 63 U/L (10-37); CHLORIDE 105 mmol/L (98-107); CREATININE 1.15 mg/dL (0.55-1.30); GLUCOSE 96 mg/dL (70-99); TOTAL BILIRUBIN 0.6 mg/dL (0.0-1.0); UREA NITROGEN, BLOOD 41 mg/dL (8-21)
[2022-12-02] MEDS: NACL 0.9% 1,000 ML IV SCH (06:15)
[2022-12-02 08:21] VITALS: BP_SYST 115
[2022-12-02] MEDS: LEVOTHYROXINE SODIUM 0.05 MG TABLET PO SCH (08:57)
[2022-12-02] MEDS: CHOLECALCIFEROL (VITAMIN D3) 2,000 UNIT TABLET PO SCH (08:57)
[2022-12-02] MEDS: MENTHOL/ZINC OXIDE 113 GM OINT. TP SCH (08:59)
[2022-12-02] MEDS: BALSAM PERU/CASTOR OIL 56.7 GM OINT...G. TP SCH (08:59)
[2022-12-02] MEDS ORDERED: PANTOPRAZOLE SODIUM 40 MG TAB PO SCH (09:00)
[2022-12-02] MEDS ORDERED: CALCIUM 500 MG/TAB PO SCH (09:00)
[2022-12-02] MEDS: METOPROLOL TARTRATE 25 MG TABLET PO SCH (09:00)
[2022-12-02] MEDS: AMIODARONE HCL 200 MG TABLET PO SCH (09:00)
[2022-12-02] MEDS: INSULIN LISPRO SLIDING SCALE 100 UNITS/ML, 3 ML VIAL (humaLOG) SUBCUT PRN (11:34)
[2022-12-02 11:45] VITALS: BP_SYST 133
[2022-12-02 14:45] VITALS: BP_SYST 133
== END 2022-12-02 15:10 | DRG 871 ==
LOC: SED 08:14 → STU 11:07 → SIC 11-13 16:14 → STU 11-30 18:45
PROVIDERS: ADMIT General Practice; ATTEND General Practice
PROC: 5A0955A Assistance with Respiratory Ventilation, Greater than 96 Consecutive Hours, High Flow/Velocity Cannula (ICD-10-PCS; 2022-11-13)
PROC: 05HY33Z Insertion of Infusion Device into Upper Vein, Percutaneous Approach (ICD-10-PCS; 2022-11-14)
PROC: 30233N1 Transfusion of Nonautologous Red Blood Cells into Peripheral Vein, Percutaneous Approach (ICD-10-PCS; principal; 2022-11-15)
PROC: 5A0955A Assistance with Respiratory Ventilation, Greater than 96 Consecutive Hours, High Flow/Velocity Cannula (ICD-10-PCS; 2022-11-25)
DX: A41.89 Other specified sepsis (principal); J12.82 Pneumonia due to coronavirus disease 2019; U07.1 COVID-19; J96.01 Acute respiratory failure with hypoxia; N17.0 Acute kidney failure with tubular necrosis; R65.21 Severe sepsis with septic shock; R57.8 Other shock; G93.40 Encephalopathy, unspecified; E87.1 Hypo-osmolality and hyponatremia; K92.2 Gastrointestinal hemorrhage, unspecified; E87.0 Hyperosmolality and hypernatremia; E11.9 Type 2 diabetes mellitus without complications; E78.5 Hyperlipidemia, unspecified; D50.0 Iron deficiency anemia secondary to blood loss (chronic); E03.9 Hypothyroidism, unspecified; Z96.652 Presence of left artificial knee joint; R53.81 Other malaise; E11.22 Type 2 diabetes mellitus with diabetic chronic kidney disease; D63.1 Anemia in chronic kidney disease; I12.9 Hypertensive chronic kidney disease with stage 1 through stage 4 chronic kidney disease, or unspecified chronic kidney disease; I48.91 Unspecified atrial fibrillation; T38.0X5A Adverse effect of glucocorticoids and synthetic analogues, initial encounter; N18.9 Chronic kidney disease, unspecified; R79.1 Abnormal coagulation profile; Z85.038 Personal history of other malignant neoplasm of large intestine
CPT/HCPCS: 36415; 36600; 70450-TC; 71045; 72125-TC; 72192-TC; 74018; 76376; 76770; 80048; 80053; 81000; 82150; 82550; 82570; 82803; 82962; 83037; 83605; 83615; 83690; 83735; 83880; 84302; 85025; 85379; 85610-TC; 85651-TC; 85730-TC; 86140; 86886; 86900; 86901; 86920; 87040; 87081; 87230-TC; 92610-GN; 93005; 93306; 93970; 94010; 94640; 94760; 96365; 96367; 96375; 97110-GP; 97163-GP; 97530-GP; 99291; C9113; G0378; J0282; J0456; J0696; J1100; J1644; J1815; J1940; J2060; J2270; J2370; J2405; J2543; J2916; J2930; J3490; J7030; J7050; J7060; J7614; P9021; P9046; Q0144

== ENCOUNTER 2022-12-05 23:45 | Inpatient (IN) | payer OTHER ==
[~2022-12-05] VITALS: Ht 175.3 cm; Wt 70.3 kg
[~2022-12-05 23:45] MED LIST: LEVO50TA8 PO; [UNRECOGNIZED DRUG - CODE]; [UNRECOGNIZED DRUG - CODE] TP
[2022-12-05 23:58] VITALS: BP_SYST 107
[2022-12-06] MEDS ORDERED: NS 1000 ML IV.SOLN IV ONE (00:15)
[2022-12-06] MEDS ORDERED: PIPERACILLIN/TAZO 3.375 GM in D5W 50 ML IV ONE (00:15)
[2022-12-06] MEDS ORDERED: PIPERACILLIN/TAZOBACTAM 3.375 GM/VIAL (ZOSYN) IV ONE (00:16)
[2022-12-06] MEDS ORDERED: RIVA15TA PO (00:35)
[2022-12-06] MEDS ORDERED: INSU100V7 SUBCUT (00:35)
[2022-12-06] MEDS ORDERED: AMIO100T4 PO (00:35)
[2022-12-06] MEDS ORDERED: ACET-73 PO (00:35)
[2022-12-06] MEDS ORDERED: SENN8.6T19 PO (00:35)
[2022-12-06] MEDS ORDERED: ACET325T PO ×2 (00:35)
[2022-12-06] MEDS ORDERED: DOCU-144 PO (00:35)
[2022-12-06] MEDS ORDERED: MOM PO (00:35)
[2022-12-06] MEDS ORDERED: ACETAMINOPHEN 650 MG SUPP.RECT RC ONE (01:00)
[2022-12-06 01:05] LABS: BILIRUBIN,URINE NEGATIVE (NEGATIVE); BLOOD, URINE 2+ (NEGATIVE); CLARITY/URINE SL CLOUDY (CLEAR); COLOR,URINE YELLOW (YELLOW); GLUCOSE,URINE NEGATIVE (NEGATIVE); KETONES,URINE NEGATIVE (NEGATIVE); LEUKOCYTE ESTERASE ,URINE NEGATIVE (NEGATIVE); NITRITE, URINE NEGATIVE (NEGATIVE); PROTEIN URINE TRACE (NEGATIVE); UROBILINOGEN,URINE 0.2 (0.2-1.0)
[2022-12-06 01:18] LABS: INR 2.1 (0.80-1.20)
[2022-12-06 01:25] LABS: BASOPHILS % (AUTO) 0.1 % (0.0-2.0); HEMATOCRIT 26.4 % (36-54); HEMOGLOBIN 8.7 g/dL (14.0-18.0); LYMPHOCYTES # (AUTO) 0.3 K/uL (1.0-5.5); LYMPHOCYTES % (AUTO) 5.5 % (20.5-51.5); MEAN CORPUSCULAR HEMOGLOBIN 29 pg (27-31); MEAN CORPUSCULAR HGB CONC 33 % (32-36); MEAN CORPUSCULAR VOLUME 89 fL (79.0-98.0); MONOCYTES # (AUTO) 0.4 K/uL (0.0-1.0); MONOCYTES % (AUTO) 6.3 % (1.7-9.3); NEUTROPHILS # (AUTO) 5.2 K/uL (1.8-7.7); NEUTROPHILS % (AUTO) 88.1 % (40.0-70.0); PLATELET COUNT (AUTO) 265 K/uL (130-430); RED BLOOD CELL COUNT(AUTO) 2.98 MIL/uL (4.2-6.2); RED CELL DISTRIBUTION WIDTH 15.5 % (9.0-15.0); WHITE BLOOD COUNT (AUTO) 5.9 K/uL (4.8-10.8)
[2022-12-06 01:27] LABS: ALANINE AMINOTRANSFERASE 83 U/L (12-78); ALBUMIN 1.7 g/dL (3.4-4.8); ANION GAP 10 (5-15); ASPARTATE AMINOTRANSFERASE 41 U/L (10-37); CALCIUM 7.6 mg/dL (8.4-11.0); CHLORIDE 109 mmol/L (98-107); CREATININE 1.51 mg/dL (0.55-1.30); GLUCOSE 178 mg/dL (70-99); TOTAL BILIRUBIN 0.4 mg/dL (0.0-1.0); UREA NITROGEN, BLOOD 32 mg/dL (8-21)
[2022-12-06 01:30] LABS: BACTERIA,URINE RARE /HPF (None Seen); RBC,URINE 0-3 /HPF (0-3); WBC,URINE 0-3 /HPF (0-3); YEAST,URINE Few /HPF (None Seen)
[2022-12-06 01:40] LABS: FREE T4 (FREE THYROXINE) 0.6 ng/dl (0.8-1.5); THYROID STIMULATING HORMONE 1.7 uIu/mL (0.36-3.74)
[2022-12-06] MEDS ORDERED: INSULIN REGULAR, HUMAN 100 UNITS/ML, 3 ML VIAL (humuLIN R) SUBCUT PRN (03:45)
[2022-12-06] MEDS ORDERED: NACL 0.9% 1,000 ML IV SCH (03:45)
[2022-12-06 04:45] VITALS: BP_SYST 115
[2022-12-06] MEDS ORDERED: MAGNESIUM SULFATE 50 ML IV PRN (07:30)
[2022-12-06] MEDS ORDERED: IPRATROPIUM/ALBUTEROL SULFATE 3 ML AMPUL.NEB (DUONEB) INH PRN (07:30)
[2022-12-06] MEDS ORDERED: DOCUSATE SODIUM 100 MG CAPSULE PO PRN (07:30)
[2022-12-06] MEDS ORDERED: LORazepam 2 MG/ML VIAL IVP PRN (07:30)
[2022-12-06] MEDS ORDERED: ACETAMINOPHEN 325 MG TABLET PO PRN (07:30)
[2022-12-06] MEDS ORDERED: POTASSIUM CHLORIDE 20 MEQ TAB.PRT.SR PO PRN (07:30)
[2022-12-06] MEDS ORDERED: ZOLPIDEM TARTRATE 5 MG TABLET PO PRN (07:30)
[2022-12-06] MEDS ORDERED: ONDANSETRON HCL 4 MG/2 ML VIAL IVP PRN (07:30)
[2022-12-06] MEDS ORDERED: MUPIROCIN 2% TOPICAL OINTMENT 22 GM NS PRN (07:30)
[2022-12-06 08:00] VITALS: BP_SYST 98
[2022-12-06] MEDS ORDERED: HEPARIN SODIUM,PORCINE 5,000 UNITS/ML VIAL SUBCUT SCH (09:00)
[2022-12-06] MEDS ORDERED: PANTOPRAZOLE SODIUM 40 MG TAB PO SCH (09:00)
[2022-12-06] MEDS ORDERED: AMIODARONE HCL 200 MG TABLET PO ONE (09:00)
[2022-12-06] MEDS ORDERED: AMIODARONE HCL 200 MG TABLET PO SCH ×2 (09:00→21:00)
[2022-12-06] MEDS ORDERED: DOCUSATE SODIUM 100 MG CAPSULE PO SCH (09:00)
[2022-12-06 09:42] VITALS: BP_SYST 115
[2022-12-06] MEDS: PIPERACILLIN/TAZO 2.25G/DEX-IS 50 ML IV SCH ×2 (10:01→12:06)
[2022-12-06] MEDS ORDERED: MANNITOL 25% 12.5GM/50 ML VIAL IVP ONE (12:30)
[2022-12-06 13:03] VITALS: BP_SYST 103
[2022-12-06 13:12] VITALS: BP_SYST 97
[2022-12-06] MEDS ORDERED: SENNOSIDES 8.6 MG TABLET PO SCH (21:00)
== END 2022-12-06 14:02 | disposition short-term general hospital (02) | DRG 64 ==
LOC: SED 23:45 → STU 12-06 03:40
PROVIDERS: ADMIT General Practice; ATTEND General Practice
DX: I62.9 Nontraumatic intracranial hemorrhage, unspecified (principal); E43 Unspecified severe protein-calorie malnutrition; J69.0 Pneumonitis due to inhalation of food and vomit; N17.0 Acute kidney failure with tubular necrosis; J44.0 Chronic obstructive pulmonary disease with (acute) lower respiratory infection; E03.9 Hypothyroidism, unspecified; D63.8 Anemia in other chronic diseases classified elsewhere; G90.8 Other disorders of autonomic nervous system; I48.91 Unspecified atrial fibrillation; R74.01 Elevation of levels of liver transaminase levels; Z20.822 Contact with and (suspected) exposure to COVID-19; I12.9 Hypertensive chronic kidney disease with stage 1 through stage 4 chronic kidney disease, or unspecified chronic kidney disease; E11.22 Type 2 diabetes mellitus with diabetic chronic kidney disease; N18.9 Chronic kidney disease, unspecified; Z79.01 Long term (current) use of anticoagulants; Z68.22 Body mass index [BMI] 22.0-22.9, adult
CPT/HCPCS: 36415; 36600; 70450-TC; 71045; 76376; 76700-TC; 80053; 81000; 82803; 83037; 83605; 83880; 84439; 84443; 84484; 85025; 85610-TC; 85730-TC; 87040; 87081; 87086; 87101; 93005; 96365; 99291; G0378; J1644; J1815; J2543